=== PATIENT | female | born 1930 | race Caucasian/White ===

== ENCOUNTER 2017-07-31 08:30 | Day surgery (SDC) | payer OTHER ==
[2017-07-08 15:06] VITALS: BMI 21.7
--- NOTE | 2017-07-31 08:58 | HP ---
Satellite [facility] - Chief Complaint Chief Complaint: right hip pain - Past Medical History Allergies/Adverse Reactions: Allergies Allergy/AdvReac Type Severity Reaction Status Date / Time No Known Drug Allergies Allergy Verified 07/08/17 15:23 - Current Medications Current Medications: Home Medications Medication Instructions Recorded Acetaminophen [Extra Strength 500 mg PO TID 07/09/17 Non-Aspirin] Amlodipine Besylate [Norvasc -] 5 mg PO DAILY 07/09/17 Aspirin [ASA -] 81 mg PO DAILY 07/09/17 Atenolol [Tenormin] 100 mg PO DAILY 07/09/17 Digoxin [Lanoxin -] 0.125 mg PO DAILY 07/09/17 Esomeprazole Magnesium [Nexium 40 mg PO DAILY 07/09/17 24Hr] Ferrous Sulfate [Feosol] 650 mg PO DAILY 07/09/17 Furosemide 20 mg PO DAILY 07/09/17 Glyburide 2.5 mg PO DAILY 07/09/17 Isosorbide Mononitrate [Imdur] 60 mg PO DAILY 07/09/17 Pravastatin Sodium [Pravachol (Nf)] 40 mg PO DAILY 07/09/17 Prednisone 1.5 mg PO DAILY 07/09/17 Pregabalin [Lyrica] 75 mg PO DAILY 07/09/17 Satellite Physical Exam - Physical Examination General Appearance: Well Nourished, Well Developed, Alert & Oriented x3 ENT: Clear Lung: Normal air movement Heart: Regular rate & rhythm Extremities: Other (right hip- + ttp, decr rom, nvi xrays show hip djd) Neurological: Intact, Alert, Oriented Satellite Impression/Plan - Impression/Plan Impression: right hip djd Operative Procedure: right hip arthrogram with injection of cortisone Date to be Performed: 07/31/17
[2017-07-31 09:16] VITALS: TEMP 98.2
[2017-07-31] MEDS ORDERED: IOHEXOL 180 MG/1 ML ML IJ ONE (10:21)
[2017-07-31] MEDS ORDERED: LIDOCAINE HCL 1%, 10 MG/ML (20ML VIAL) NR ONE (10:21)
[2017-07-31] MEDS ORDERED: methylPREDNISolone ACET (DEPO) 80 MG/1 ML VIAL IM ONE (10:21)
--- NOTE | 2017-07-31 10:26 | OP ---
Operative Note - Note: Operative Date: 07/31/17 Pre-Operative Diagnosis: DJD RIGHT HIP Operation: ARTHROGRAM RIGHT HIP AND INJECTION OF CORTISONE Post-Operative Diagnosis: Same as Pre-op Anesthesia: General Operative Report Dictated: Yes
--- NOTE | 2017-07-31 11:30 | OP ---
DATE OF OPERATION: 07/31/2017 PREOPERATIVE DIAGNOSIS: Degenerative joint disease, right hip. POSTOPERATIVE DIAGNOSIS: Degenerative joint disease, right hip. PROCEDURES: Arthrogram and injection of cortisone, right hip. SURGICAL ATTENDING: Amari Pride MD ANESTHESIA: IV sedation. DESCRIPTION OF PROCEDURE: The patient was taken to the operating room on July 31, 2017. IV sedation was administered by the anesthesiologist. The hip area was identified using the fluoroscopy and a spinal needle was inserted on a 45-degree angle away from the artery directed to the hip joint. Confirmation that we were in the hip joint was confirmed by use of Hypaque dye. Once confirming inside the hip joint, the hip was injected with 80 mg of Depo-Medrol and 7-8 mL of 1% lidocaine. The needle was withdrawn. Pressure was applied and a Band-Aid applied. The patient was awakened from anesthesia and transferred to recovery room in stable condition. No complications. Estimated blood loss negligible. AMARI PRIDE M.D. [id number]
[2017-07-31 12:41] VITALS: BP 131/60; PULSE 70
== END 2017-07-31 12:00 | disposition home or self-care (01) ==
LOC: JASU-SURG 08:30
PROVIDERS: ATTEND Orthopaedic Surgery
PROC: BQ01YZZ Plain Radiography of Left Hip using Other Contrast (ICD-10-PCS; 2017-07-31)
PROC: BW1CYZZ Fluoroscopy of Lower Extremity using Other Contrast (ICD-10-PCS; principal; 2017-07-31 10:15)
DX: M16.11 Unilateral primary osteoarthritis, right hip (principal)
CPT/HCPCS: 73525; G0260; 76000-TC-FY; 82962

== ENCOUNTER 2017-12-21 16:14 | Inpatient (IN) | payer OTHER ==
--- NOTE | 2017-12-21 17:12 | PDOC ---
History of Present Illness - General Chief Complaint: Injury Stated Complaint: WEAKNESS Time Seen by Provider: 12/21/17 17:09 History Source: Patient, Care Provider (home health aide) Exam Limitations: No Limitations - History of Present Illness Initial Comments: Pt, with PMH of CHF, HTN, DM, DJJ right hip, colostomy, and Parkinson's Ds, presents to the ER with chronic R hip pain, and increased swelling in the legs and feet (R>L). The pt also admits to multiple falls within the past few months , due to weakness and "heaviness" in the R leg. She has had a constant dull pain in the R hip, which travels down to the R leg. The pt has a home health aide, who is only available 4-5 days of the week, and the pt daughter stays with her in the evening. She states during the last un-witnessed fall, she fell while transferring to her wheelchair, and fell onto her knees before she picked herself up. Her colostomy bag has been draining brown stool as normal, and she cleans and drains it on her own. She denies any precipitating factors to the fall. She has a PLANNING AND ANALYSIS MANAGER that comes to her house to manage her medications. They have increased her Lasix to 20 mg PO, with no relief of swelling. She denies fevers/ chills, headache, vision changes, chest pain, SOB, abdominal pain, nausea/ vomiting, diarrhea/constipation, loss of sensation in the extremities, or joint swelling. Dr Pride (orthopedics) conducted a R arthrogram for pain control in July 2017. Pt states Dr. Pride told her she needed a R hip and knee replacement. Her DM is controlled with glyburide (2.5 mg, no insulin use). 12/21/17 18:17 Past History - Travel Traveled outside of the country in the last 30 days: No Close contact w/someone who was outside of country & ill: No - Past Medical History Allergies/Adverse Reactions: Allergies Allergy/AdvReac Type Severity Reaction Status Date / Time No Known Drug Allergies Allergy Verified 07/08/17 15:23 Home Medications: Ambulatory Orders Amlodipine Besylate [Norvasc -] 5 mg PO DAILY 12/21/17 Ascorbic Acid [Vitamin C] 500 mg PO DAILY 12/21/17 Aspirin [ASA -] 81 mg PO DAILY 12/21/17 Atenolol [Tenormin -] 100 mg PO DAILY 12/21/17 Dexlansoprazole [Dexilant] 60 mg PO DAILY 12/21/17 Digoxin [Lanoxin -] 0.125 mg PO DAILY 12/21/17 Fenofibrate Nanocrystallized [Fenofibrate] 54 mg PO DAILY 12/21/17 Ferrous Sulfate 325 mg PO DAILY 12/21/17 Furosemide 20 mg PO DAILY 12/21/17 Glyburide 2.5 mg PO DAILY 12/21/17 Glyburide 2.5 mg PO DAILY 12/21/17 Isosorbide Mononitrate [Isosorbide Mononitrate ER] 60 mg PO DAILY 12/21/17 Prednisone 5 mg PO DAILY 12/21/17 Pregabalin [Lyrica -] 75 mg PO DAILY 12/21/17 Anemia: No Asthma: No Cancer: No Cardiac Disorders: Yes (CARDIAC STENT 2002) CVA: No COPD: No CHF: No Dementia: No Diabetes: No GI Disorders: No Disorders: No HTN: Yes Hypercholesterolemia: Yes Liver Disease: No Seizures: No Thyroid Disease: No - Surgical History Abdominal Surgery: Yes (COLON RESECTION AND COLOSTOMY) Appendectomy: No Cardiac Surgery: Yes (CARDIAC STENT) Cholecystectomy: Yes (AGE 59) Lung Surgery: No Neurologic Surgery: No Orthopedic Surgery: No - Suicide/Smoking/Psychosocial Hx Smoking History: Never smoked Have you smoked in the past 12 months: No Hx Alcohol Use: No Drug/Substance Use Hx: No Substance Use Type: None Hx Substance Use Treatment: No Review of Systems - Review of Systems Able to Perform ROS?: Yes Is the patient limited Malay proficient: No Constitutional: Yes: Weakness (weak in R leg, as "knees buckle"), Weight Stable. No: Chills, Diaphoresis, Fever, Loss of Appetite, Malaise HEENTM: No: Recent change in vision, Nose Congestion, Hearing Loss, Difficulty Swallowing Respiratory: No: Cough, Orthopnea, Shortness of Breath, Hemoptysis Cardiac (ROS): No: Chest Pain, Edema, Irregular Heart Rate, Lightheadedness, Palpitations, Syncope, Chest Tightness ABD/GI: No: Abdominal Distended, Constipated, Diarrhea, Nausea, Poor Appetite, Poor Fluid Intake, Vomiting : Yes: Incontinence (has had trouble getting to the bathroom for urination in time). No: Burning, Dysuria, Frequency, Hematuria, Pain, Urgency Musculoskeletal: Yes: Joint Pain (R hip pain), Joint Swelling (edema over feet and ankles, worse R>L). No: Back Pain Integumentary: Yes: Other (edema in legs and feet R>L. Not relieved with compression stockings.). No: Bruising, Erythema, Rash Neurological: Yes: Tremors (b/l resting tremor in hands (Parkinson's)). No: Headache, Numbness, Paresthesia, Seizure, Weakness, Unsteady Gait, Ataxia, Dizziness Psychiatric: No: Sleep Pattern Change, Change in Appetite Endocrine: No: Increased Urine, Change in Weight Hematologic/Lymphatic: No: Anemia, Blood Clots, Easy Bleeding All Other Systems: Reviewed and Negative *Physical Exam - Physical Exam General Appearance: Yes: Nourished, Appropriately Dressed. No: Apparent Distress HEENT: positive: EOMI, ANGEL, Normal ENT Inspection, Normal Voice, Symmetrical, Hearing Grossly Normal. negative: Pharynx Normal, Scleral Icterus (R), Scleral Icterus (L), Pharyngeal Erythema, Tonsillar Exudate, Tonsillar Erythema, Rhinorrhea Neck: positive: Trachea midline, Normal Thyroid, Supple. negative: Tender, Rigid, Decreased range of motion, Lymphadenopathy (R), Lymphadenopathy (L) Respiratory/Chest: positive: Lungs Clear, Normal Breath Sounds. negative: Chest Tender, Respiratory Distress, Accessory Muscle Use, Crackles, Wheezing Cardiovascular: positive: Regular Rate, S1, S2, Edema (b/l LE edema (R>L)). negative: Regular Rhythm (A-flutter), JVD, Murmur Vascular Pulses: Carotid (R): 3+, Carotid (L): 3+, Dorsalis-Pedis (R): 0 ( unable to obtain due to edema), Doralis-Pedis (L): 0 Gastrointestinal/Abdominal: positive: Normal Bowel Sounds, Flat, Soft, Other ( colostomy bag, empty). negative: Tender, Organomegaly, Pulsatile Mass, Guarding , Rebound Rectal Exam: positive: deferred, other (Stage 1-2 erythematous pressure ulcer near sacrum. No drainage. ) Lymphatic: negative: Adenopathy, Tenderness Musculoskeletal: positive: Normal Inspection. negative: CVA Tenderness Extremity: positive: Normal Capillary Refill, Tender, Pelvis Stable, Pedal Edema (Significant non-pitting, fluctuant edema over b/l LE (R>L). Pt unable to flex at R hip due to pain, decreased ROM at R ankle. Strength and ROM preserved on LLE.). negative: Normal Inspection, Normal Range of Motion, Cyanosis Integumentary: positive: Normal Color, Dry, Warm, Erythema (erythematous R foot , varicose veins b/l). negative: Jaundice, Mottled, Ecchymosis, Bruising Neurologic: positive: solar sales estimator II-XII NML intact, Fully Oriented, Alert, Normal Mood/ Affect, Normal Response, Motor Strength 5/5. negative: EOM Palsy, Facial Droop , Numbness, Sensory Deficit, Confused, Disoriented Heart Score/ECG Review - History History: Moderately suspicious (CHF, no chest pain complaints) - Age Age: >/= 65 - Risk Factors Risk Factors Heart Score: Yes Hx Hypertension, Yes Hx Diabetes Based on the list above the patient has:: 1-2 risk factors - Troponin Troponin: </= normal limit - ECG Impressions Normal ECG: No Non-specific ST Elevation: No Ischemic Changes: No Bradycardia: No Comment:: Atrial flutter (appears to be 4:1 block). Rate: 55 bpm 12/21/17 20:20 ED Treatment Course - LABORATORY CBC & Chemistry Diagram: 12/21/17 18:38 12/21/17 18:38 Medical Decision Making - Medical Decision Making Pt seen at bedside, also seen by Dr. Palumbo. Pt complaining of pain in R hip ( chronic) and worsening swelling in the b/l legs (R>L). She also states she has had multiple falls over the past few months, due to the "heaviness" and weakness in her R leg. Pt takes baby aspirin. Pt only has a care provider 4-5 days of the week and her daughter stays with her at night. Her PLANNING AND ANALYSIS MANAGER has increased her Lasix to decrease the swelling (now 20 mg) with no relief. Pt has significant swelling in the RLE>LLE, considering CHF exacerbation versus DVT, as well as social issues (limited care at home). Ordered basic labs, coags, troponin/ECG, UA/culture, doppler of RLE, non-contrast head CT, and x-rays of R hip and R knee. ECG showed A-flutter 12/21/17 19:09 Pt taken for US. 12/21/17 19:27 CBC and CMP generally WNL. Cr 1.1. BNP 1883. Troponin negative. US negative for DVT. Spoke to pt's daughters to gain more cardiac history. She has history of atrial fibrillation. Pt currently in CT and x-rays. Will check for results. 12/21/17 21:46 Pt returned from imaging. Awaiting images. Paged hospitalist for admission. 12/21/17 22:53 Signed out to hospitalist team and they are at bedside. Will be admitted for observation and likely social work consult. 12/21/17 23:36 *DC/Admit/Observation/Transfer Diagnosis at time of Disposition: Falls frequently, Atrial flutter by electrocardiogram - Discharge Dispostion Condition at time of disposition: Stable Decision to Admit order: Yes - Referrals Referrals: ON STAFF,NOT [Primary Care Provider] - - Patient Instructions - Post Discharge Activity
[2017-12-21] MEDS ORDERED: ACETAMINOPHEN 1000 MG/100 ML VIAL (NON FORMULARY) IVPB ONE (17:52)
[2017-12-21] MEDS ORDERED: ACETAMINOPHEN INJECTION 100 ML IVPB ONE (18:59)
--- NOTE | 2017-12-21 19:13 | PDOC ---
Attending Attestation - HPI HPI: 12/21/17 19:23 The patient is a 87 year old female, with a significant past medical history of CHF, DM, HTN, and Parkinsons, who presents to the emergency department with, 1 week of worsening bilateral lower extremity swelling worse in the right. As per patient, in July she had an arthrogram of her right hip in July by Dr. Pride to whom informed her that the next step would have to be a right hip replacement. She reports using compression stockings, with minimal relief. She reports 3 days ago she fell to her knees after her right foot buckling when moving from her bed to her wheelchair. As per patient, shes had multiple falls lately. She has an at supervisor home economics 6 days a week for 11 hours and her daughter stays with her at night. During the morning she is left alone between the hours her daughter goes to work and her aid comes in. She denies any recent LOC or hitting her head. She denies recent fevers, chills , headache or dizziness. She denies recent nausea, vomit, diarrhea or constipation. She denies recent dysuria, frequency, urgency or hematuria. She denies recent chest pain or shortness of breath. Allergies: NKA Past surgical history: s/p cardiac stent, s/p colostomy and colon resection, and cholecystectomy. - Physicial Exam PE: 12/21/17 19:23 GENERAL: Awake, alert, and fully oriented, in no acute distress HEAD: No signs of trauma +ENT: Hearing grossly normal. Dry mucosa NECK: Normal ROM, supple, no lymphadenopathy, JVD, or masses No c-spine tenderness. LUNGS: Breath sounds equal, clear to auscultation bilaterally. No wheezes, and no crackles +HEART: Systolic murmur. Regular rate, normal S1 and S2, rubs or gallops +ABDOMEN: Colostomy bag in place. Soft, nontender, normoactive bowel sounds. No guarding, no rebound. No masses +EXTREMITIES: Bilateral pitting edema right greater than left. Right hip and groin tenderness. Decreased ROM on the right due to pain No erythema or tenderness. Warm and well perfused. +NEUROLOGICAL: Strength 5/5. Speech slow but, clear. ANO x3. Moves all extremities. SKIN: Warm, Dry, normal turgor, no rashes or lesions noted. <Goberdan,Kirstene - Last Filed: 12/21/17 19:53> - Resident Resident Name: Zita Mitchellana - ED Attending Attestation I have performed the following: I have examined & evaluated the patient, The case was reviewed & discussed with the resident, I agree w/resident's findings & plan, Exceptions are as noted - Medical Decision Making 12/21/17 19:11 87-year-old female history of Parkinson's, hypertension, diabetes currently on baby aspirin here today complaining of a fall a few days prior with persistent hip and knee pain worse on the right. Patient states that she has had several falls over the last few weeks that she did not tell anybody about she lives alone has home health aide approximately 11 hours 6 days a week only states that most recently she fell to her knees were unable to get up her neighbor happened to come over and help her into her chair when the aide arrived the patient was still in the chair has been unable to walk she has had decreased by mouth intake due to concerns for her colostomy with high output. No fever no chills states that overall she has very poor balance no urinary complaints or nausea no vomiting states she was on the floor for 20 minutes X Differential diagnosis includes rhabdomyolysis traumatic fracture of the right hip stroke or intracranial bleed infection such as UTI or pneumonia precipitating falls plan: CT head chest x-ray x-ray of the right hip and knee UA patient will likely require admission for home safety eval PT she is not currently in a safe situation for fall risk <Britany Palumbo - Last Filed: 12/21/17 21:31> Heart Score/ECG Review #1 General ECG Interpretation: Normal Intervals, No acute ischemic changes Compared to previous ECG there are: Other (atrial flutter 55 bpm) <Britany Palumbo - Last Filed: 12/21/17 21:31> Attestations - Attestations 12/21/17 19:24 Documentation prepared by Dirk Schumacher, acting as medical technician assistant for Britany Palumbo MD. <Dirk Schumacher - Last Filed: 12/21/17 19:53>
[2017-12-21 19:15] LABS: BASO % 0.6 % (0-2.0); EOS % 0.3 % (0-4.5); HEMOGLOBIN 12.2 GM/dL (10.7-15.3); LYMPH % 15.5 % (8-40); MCH 25.6 pg (25.7-33.7); MEAN CELL VOLUME 77.5 fl (80-96); MEAN PLT VOLUME 9.8 fl (7.5-11.1); MONO % 5.1 % (3.8-10.2); NEUT % 78.5 % (42.8-82.8); PLATELET COUNT 145 K/MM3 (134-434); RBC 4.78 M/mm3 (3.60-5.2); RDW 16.8 % (11.6-15.6); WHITE BLOOD COUNT 8.5 K/mm3 (4.0-10.0)
[2017-12-21 19:40] LABS: INR 1.2 (0.83-1.09); PROTHROMBIN TIME (PATIENT) 13.6 SEC (9.7-13.0)
[2017-12-21 19:42] LABS: ACTIVATED PTT 28.4 SECONDS (25.2-36.5)
[2017-12-21 19:50] LABS: ANION GAP 10 (8-16); BILIRUBIN,TOTAL 0.5 mg/dL (0.2-1.0); BLOOD UREA NITROGEN 18 mg/dL (7-18); CALCIUM 9.3 mg/dL (8.5-10.1); CHLORIDE 109 mmol/L (98-107); CO2 26 mmol/L (21-32); CREATININE 1.1 mg/dL (0.55-1.02); GLUCOSE,RANDOM 85 mg/dL (74-106); POTASSIUM 4.3 mmol/L (3.5-5.1); SGOT/AST 16 U/L (15-37); SGPT/ALT 21 U/L (12-78); SODIUM 145 mmol/L (136-145); TOT PROT 7.9 g/dl (6.4-8.2)
[2017-12-21 19:53] LABS: ALK PHOS 48 U/L (45-117); N-TERMINAL BNP 1883.74 pg/ml (5-450)
[2017-12-21 20:48] LABS: URINE APPEARANCE CLEAR; URINE BILIRUBIN NEGATIVE (<2.0 mg/dL); URINE COLOR YELLOW; URINE GLUCOSE (UA) NEGATIVE (NEGATIVE); URINE KETONE NEGATIVE (NEGATIVE); URINE LEUK ESTERASE NEGATIVE (NEGATIVE); URINE NITRITE NEGATIVE (NEGATIVE); URINE UROBILINOGEN NEGATIVE mg/dL (0.2-1.0)
[2017-12-21 20:52] LABS: URINE PROTEIN 2+ (NEGATIVE)
--- NOTE | 2017-12-21 23:17 | PN ---
Teaching Attending Note Name of Resident: Lesli Bolton ATTENDING PHYSICIAN STATEMENT I saw and evaluated the patient. I reviewed the resident's note and discussed the case with the resident. I agree with the resident's findings and plan as documented. SUBJECTIVE: Patient is an 87 year old woman with PMH of CHF, HTN, DM, DJJ right hip, colostomy, and Parkinson's who presents to the ER with chronic R hip pain, and increased swelling in the legs and feet (R>L). She also admits to multiple falls within the past few months, due to weakness and "heaviness" in the R leg. She has had a constant dull pain in the R hip, which travels down to the R leg. Patient has a home health aide, who is only available 4-5 days of the week, and her daughter stays with her in the evening. She states during the last un- witnessed fall, she fell while transferring to her wheelchair, and fell onto her knees before she picked herself up. Her colostomy bag has been draining brown stool as normal, and she cleans and drains it on her own. She has a BUFFER INFLATED PAD that comes to her house to manage her medications. They have increased her Lasix to 20 mg PO, with no relief of swelling. She denies fevers/chills, headache, vision changes, chest pain, SOB, abdominal pain, nausea/vomiting, diarrhea/constipation, loss of sensation in the extremities, or joint swelling. OBJECTIVE: Alert Vital Signs Period Temp Pulse Resp BP Sys/Rodriguez Pulse Ox Last 24 Hr 97.9 F-98.2 F 59-70 16-18 151-185/67-78 99-100 HEENT: No Jaundice, eye redness or discharge, PERRLA, EOMI. Normocephalic, atraumatic. External ears are normal and hearing is grossly intact. No nasal discharge. Neck: Supple, nontender. No palpable adenopathy or thyromegaly. No JVD Chest: Good effort. Clear to auscultation and percussion. Heart: Irregular. No S3, rub or murmur Abdomen: Not distended, soft, nontender and no HSM. Colostomy intact; No rebound or guarding. Normoactive bowel sounds. Ext: Peripheral pulses intact. No leg edema. Skin: Warm and dry. No petechiae, rash or ecchymosis. Neuro: Alert. Oriented x3. CN 2-12 grossly intact. Sensation grossly intact in all four extremities and DTR are symmetric. Home Medications Medication Instructions Recorded Amlodipine Besylate [Norvasc -] 5 mg PO DAILY 12/21/17 Ascorbic Acid [Vitamin C] 500 mg PO DAILY 12/21/17 Aspirin [ASA -] 81 mg PO DAILY 12/21/17 Atenolol [Tenormin -] 100 mg PO DAILY 12/21/17 Dexlansoprazole [Dexilant] 60 mg PO DAILY 12/21/17 Digoxin [Lanoxin -] 0.125 mg PO DAILY 12/21/17 Fenofibrate Nanocrystallized 54 mg PO DAILY 12/21/17 [Fenofibrate] Ferrous Sulfate 325 mg PO DAILY 12/21/17 Furosemide 20 mg PO DAILY 12/21/17 Glyburide 2.5 mg PO DAILY 12/21/17 Glyburide 2.5 mg PO DAILY 12/21/17 Isosorbide Mononitrate [Isosorbide 60 mg PO DAILY 12/21/17 Mononitrate ER] Prednisone 5 mg PO DAILY 12/21/17 Pregabalin [Lyrica -] 75 mg PO DAILY 12/21/17 Abnormal Lab Results 12/21/17 12/21/17 12/21/17 18:38 18:38 18:38 MCV 77.5 L MCH 25.6 L RDW 16.8 H PT with INR 13.60 H INR 1.20 H Chloride 109 H Creatinine 1.1 H B-Natriuretic Peptide 1883.74 H Urine Protein 12/21/17 20:21 MCV MCH RDW PT with INR INR Chloride Creatinine B-Natriuretic Peptide Urine Protein 2+ H ASSESSMENT AND PLAN: 1. Frequent fall/?CHF - Cause of frequent falls unclear. May be related to multijoint problems and DJD of hips. Patient uses wheelchair. Will consult PT and neurology. Cause of leg edema unclear - will get ECHO, DC amlodipine, consult cardiology for A flutter. Will then use appropriate dose of diuretics after ECHO findings. 2. DM - For now, we will hold the home diabetes drugs and implement sliding scale insulin regimen. Provide comprehensive diabetes care with patient teaching and counseling about the importance of euglycemia, eye care and foot care. 3. ZEKE? - Has proteinuria and leg edema. Check protein/creatinine ratio, kidney sonogram and fasting lipid profile. Consult nephrology and avoid nephrotoxic agents such as NSAIDS, aminoglycosides, contrast dyes and certain Alternative medicine products. 4. DVT prophylaxis - Heparin 5000u sq tid. 5. Advance directives - Full code
--- NOTE | 2017-12-22 01:41 | HP ---
CHIEF COMPLAINT: Increased Lower Extremity Swelling PCP: Alonzo (CHILD CARE CENTER ASSISTANT DIRECTOR) Field Mechanic/Site Lead: Chapo HISTORY OF PRESENT ILLNESS: 87 y/o Female presents with PMHx of CHF, Atrial Flutter, Cardiac Stent (2002), HTN, DM, DJD R Hip, Parkinsons disease, Hx of Multiple Falls, Chronic R Hip pain presents with an increase in lower extremity swelling over the past few months. 9 months ago, she started to feel off balance accompanied with R leg pain, weakness and b/l Lower extremity swelling (R>L). 5 months ago, patient had a R Hip Arthrogram and cortisone injection that did not relieve the pain. For the past few weeks, She has been experiencing blurry vision in her left eye. Patient recently fell and landed on her knees a few days ago. She has described the hip pain as constant, Dull, heaviness, 9/10 that is worse in the evenings and travels down her leg and occasionally feels like numbness/ tingling. She has tried compression stockings with minimal relief. Patient currently lives at home and has visiting nurses during the day for 4-5 days a week, and her daughter stays with her overnight. She currently is wheel chair bound. Denies fevers, chills, chest pain, SOB, dysuria. ER course was notable for: (1) EKG: A Flutter, Trops < 0.02 X1, BNP 1883 (2) Imaging pending official read (RLE Duplex, RLE Xray, Head CT, CXR) (3) Recent Travel: Denies PAST MEDICAL HISTORY: CHF Atrial Flutter Cardiac Stent (2002) HTN DM DJD R Hip Parkinsons disease Hx of Multiple Falls PAST SURGICAL HISTORY: Colostomy s/p Colon resection Cholecystectomy (Age 59) Cardiac stent Social History: Smoking: Denies Alcohol: Denies Drugs: Denies Family History: Allergies No Known Drug Allergies Allergy (Verified 07/08/17 15:23) HOME MEDICATIONS: Home Medications Medication Instructions Recorded Amlodipine Besylate [Norvasc -] 5 mg PO DAILY 12/21/17 Ascorbic Acid [Vitamin C] 500 mg PO DAILY 12/21/17 Aspirin [ASA -] 81 mg PO DAILY 12/21/17 Atenolol [Tenormin -] 100 mg PO DAILY 12/21/17 Dexlansoprazole [Dexilant] 60 mg PO DAILY 12/21/17 Digoxin [Lanoxin -] 0.125 mg PO DAILY 12/21/17 Fenofibrate Nanocrystallized 54 mg PO DAILY 12/21/17 [Fenofibrate] Ferrous Sulfate 325 mg PO DAILY 12/21/17 Furosemide 20 mg PO DAILY 12/21/17 Glyburide 2.5 mg PO DAILY 12/21/17 Glyburide 2.5 mg PO DAILY 12/21/17 Isosorbide Mononitrate [Isosorbide 60 mg PO DAILY 12/21/17 Mononitrate ER] Prednisone 5 mg PO DAILY 12/21/17 Pregabalin [Lyrica -] 75 mg PO DAILY 12/21/17 REVIEW OF SYSTEMS CONSTITUTIONAL: Absent: fever, chills, diaphoresis, generalized weakness, malaise, loss of appetite, weight change HEENT: Present: Blurry Vision Absent: rhinorrhea, nasal congestion, throat pain, throat swelling, difficulty swallowing, mouth swelling, ear pain, eye pain, visual changes CARDIOVASCULAR: Present: peripheral edema Absent: chest pain, syncope, palpitations, irregular heart rate, lightheadedness RESPIRATORY: Absent: cough, shortness of breath, dyspnea with exertion, orthopnea, wheezing, stridor, hemoptysis GASTROINTESTINAL: Absent: abdominal pain, abdominal distension, nausea, vomiting, diarrhea, constipation, melena, hematochezia GENITOURINARY: Absent: dysuria, frequency, urgency, hesitancy, hematuria, flank pain, genital pain MUSCULOSKELETAL: Present: RLE Weakness, Joint Pain Absent: myalgia, arthralgia, joint swelling, back pain, neck pain SKIN: Absent: rash, itching, pallor HEMATOLOGIC/IMMUNOLOGIC: Absent: easy bleeding, easy bruising, lymphadenopathy, frequent infections ENDOCRINE: Absent: unexplained weight gain, unexplained weight loss, heat intolerance, cold intolerance NEUROLOGIC: Absent: headache, focal weakness or paresthesias, dizziness, unsteady gait, seizure, mental status changes, bladder or bowel incontinence PSYCHIATRIC: Absent: anxiety, depression, suicidal or homicidal ideation, hallucinations. PHYSICAL EXAMINATION Vital Signs - 24 hr 12/21/17 12/21/17 17:00 20:10 Temperature 98.2 F 97.9 F Pulse Rate 70 Pulse Rate [ 59 L Apical] Respiratory 16 18 Rate Blood Pressure 151/67 Blood Pressure 185/78 [Left Arm] O2 Sat by Pulse 99 100 Oximetry (%) GENERAL: Awake, alert, and fully oriented, in no acute distress. EYES: PERRL, EOMI, sclera anicteric THROAT: oropharynx clear without exudates. Moist mucous membranes. NECK: No JVD, No carotid bruits appreciated LUNGS: Breath sounds equal, clear to auscultation bilaterally. No wheezes. HEART: Regular rate and rhythm, normal S1 and S2 without murmur. ABDOMEN: Soft, nontender, not distended, normoactive bowel sounds, no guarding, Colostomy bag present without any surrounding drainage or erythema. UPPER EXTREMITIES: 2+ pulses, Right hand finger nail discoloration. LOWER EXTREMITIES: 2+ pulses, Lower extremity edema present at base line that has increased as per patient. PSYCHIATRIC: Cooperative. Good eye contact. Appropriate mood and affect. SKIN: Warm, dry, no rashes or lesions noted Laboratory Results - last 24 hr 12/21/17 12/21/17 12/21/17 18:38 18:38 18:38 WBC 8.5 RBC 4.78 Hgb 12.2 Hct 37.0 MCV 77.5 L MCH 25.6 L MCHC 33.0 RDW 16.8 H Plt Count 145 MPV 9.8 Absolute Neuts (auto) 6.7 Neutrophils % 78.5 Lymphocytes % 15.5 D Monocytes % 5.1 Eosinophils % 0.3 Basophils % 0.6 Nucleated RBC % 0 PT with INR 13.60 H INR 1.20 H PTT (Actin FS) 28.4 Sodium Potassium Chloride Carbon Dioxide Anion Gap BUN Creatinine Creat Clearance w eGFR Random Glucose Calcium Total Bilirubin AST ALT Alkaline Phosphatase Troponin I B-Natriuretic Peptide Total Protein Albumin Urine Color Urine Appearance Urine pH Ur Specific [place] Urine Protein Urine Glucose (UA) Urine Ketones Urine Blood Urine Nitrite Urine Bilirubin Urine Urobilinogen Ur Leukocyte Esterase Urine WBC (Auto) Urine RBC (Auto) Blood Type A POSITIVE Antibody Screen Negative 12/21/17 12/21/17 18:38 20:21 WBC RBC Hgb Hct MCV MCH MCHC RDW Plt Count MPV Absolute Neuts (auto) Neutrophils % Lymphocytes % Monocytes % Eosinophils % Basophils % Nucleated RBC % PT with INR INR PTT (Actin FS) Sodium 145 Potassium 4.3 Chloride 109 H Carbon Dioxide 26 Anion Gap 10 BUN 18 Creatinine 1.1 H Creat Clearance w eGFR 46.88 Random Glucose 85 Calcium 9.3 Total Bilirubin 0.5 AST 16 ALT 21 Alkaline Phosphatase 48 Troponin I < 0.02 B-Natriuretic Peptide 1883.74 H Total Protein 7.9 Albumin 4.0 Urine Color Yellow Urine Appearance Clear Urine pH 5.0 Ur Specific [place] 1.017 Urine Protein 2+ H Urine Glucose (UA) Negative Urine Ketones Negative Urine Blood Negative Urine Nitrite Negative Urine Bilirubin Negative Urine Urobilinogen Negative Ur Leukocyte Esterase Negative Urine WBC (Auto) <1 Urine RBC (Auto) <1 Blood Type Antibody Screen Active Medications Heparin Sodium (Porcine) (Heparin -) 5,000 unit SQ TID [facility] Last Admin: 12/22/17 06:08 Dose: 5,000 unit Insulin Aspart (Novolog Vial Sliding Scale -) 1 vial SQ ACHS [facility]; Protocol Last Admin: 12/22/17 06:12 Dose: Not Given ASSESSMENT/PLAN: 87 y/o Female presents with PMHx of CHF, Atrial Flutter, Cardiac Stent (2002), HTN, DM, DJD R Hip, Parkinsons disease, Hx of Multiple Falls, Chronic R Hip pain presents with an increase in lower extremity swelling. 1. Lower Extremity swelling (R>L) - Chronic swelling at baseline that has increased over the past few months in the setting of multiple recent falls and being wheel chair bound - Has tried increasing home dose Lasix to 20mg and using compression stalking without relief - Consider this is sequlae of Norvasc use, will stop Norvasc for now - Hx of CHF, Parkinsons disease, Multiuple falls - Physical Therapy request - Neurology (Dr. Padilla) Consulted - Cardiology (Dr. Cowan) consulted - RLE Duplex, Knee and Hip XRay, Head CT, CXR pending official read - ECHO ordered for this morning - Lipid panel pending 2. ZEKE - Elevated Cr, UA: 2+ Protien - Ordered Urine Protein:Cr Ratio - Renal Ultrasound pending - Nephrology (Dr. Thorpe) consulted 3. DM - Hold home medications - BGM, ISS ACHS 4. Parkinsons disease - Also has a Hx of Multiple Falls - Neurology (Dr. Padilla) Consulted 5. Atrial Flutter - Cardiology (Dr. Cowan) consulted - Will continue home meds pending Echo and Cardiology recomendations 6. HTN - Will Continue home meds pending med rec 7. PPx - DVT: Heparin 5000unit SQ TID Visit type - Emergency Visit Emergency Visit: Yes ED Registration Date: 12/22/17 Care time: The patient presented to the Emergency Department on the above date and was hospitalized for further evaluation of their emergent condition. - New Patient This patient is new to me today: Yes Date on this admission: 12/22/17 - Critical Care Critical Care patient: No Hospitalist Screening - Colonoscopy Questionnaire Colonoscopy Questionnaire: Colonoscopy Questionnaire - Patient: 50 - 75 years old and never had a screening colonoscopy: Unknown History of colon or rectal polyps, or CA: Unknown History of IBD, Crohn's disease or UC: Unknown History of abdominal radiation therapy as a child: Unknown - Relative: 1 with colon or rectal CA, or polyps at age 60 or younger: Unknown Colon or rectal CA diagnosed at age 45 or younger: Unknown Multiple relatives with colon or rectal CA: Unknown - Outcome: Screening Result: Negative Screen
[2017-12-22] MEDS: HEPARIN NA (PORCINE) 5,000 UNITS/ML 1ML VIAL SQ SCH ×3 (06:08→21:40)
[2017-12-22] MEDS: INSULIN SLIDING SCALE (NOVOLOG) 1 VIAL SQ SCH ×4 (06:12→21:40)
[2017-12-22] MEDS ORDERED: FUROSEMIDE 40 MG/4 ML INJECTABLE VIAL IVPUSH ONE (08:57)
[2017-12-22 09:04] LABS: BASO % 1.1 % (0-2.0); HEMATOCRIT 39.5 % (32.4-45.2); HEMOGLOBIN 13.1 GM/dL (10.7-15.3); LYMPH % 20.1 % (8-40); MCH 25.6 pg (25.7-33.7); MCHC 33.2 g/dl (32.0-36.0); MEAN CELL VOLUME 77.2 fl (80-96); MEAN PLT VOLUME 9.7 fl (7.5-11.1); MONO % 8.4 % (3.8-10.2); NEUT % 69.4 % (42.8-82.8); PLATELET COUNT 143 K/MM3 (134-434); RBC 5.11 M/mm3 (3.60-5.2); RDW 16.5 % (11.6-15.6); WHITE BLOOD COUNT 9.5 K/mm3 (4.0-10.0)
--- NOTE | 2017-12-22 09:04 | PN ---
Physical Exam: SUBJECTIVE: Patient seen and examined.Right hip pain ongoing for a year with gradual worsening. Also reports worsening leg edema, unable to lie flat in bed at baseline. reports some worsening of her RLE symptoms since fall, but confirms an overall gradual decline. OBJECTIVE: Vital Signs Period Temp Pulse Resp BP Sys/Rodriguez Pulse Ox Last 24 Hr 97.9 F-98.2 F 59-72 16-18 148-185/67-78 97-100 GENERAL: sitting in bed in no acute distress Neck: mild neck vein distension Chest: few basilar rales, positive air entry bilaterally Abdomen:soft, NT throughout, ND, positive bowel sounds Extremities: no point tenderness over right hip/groin region, SLR upto 20 degrees RLE, limited by pain, LLE upto 40 degrees, no point spinal tenderness, bilateral knee swelling, R>L, chronic per patient Laboratory Results - last 24 hr 12/21/17 12/21/17 12/21/17 18:38 18:38 18:38 WBC 8.5 RBC 4.78 Hgb 12.2 Hct 37.0 MCV 77.5 L MCH 25.6 L MCHC 33.0 RDW 16.8 H Plt Count 145 MPV 9.8 Absolute Neuts (auto) 6.7 Neutrophils % 78.5 Lymphocytes % 15.5 D Monocytes % 5.1 Eosinophils % 0.3 Basophils % 0.6 Nucleated RBC % 0 PT with INR 13.60 H INR 1.20 H PTT (Actin FS) 28.4 Sodium Potassium Chloride Carbon Dioxide Anion Gap BUN Creatinine Creat Clearance w eGFR POC Glucometer Random Glucose Calcium Total Bilirubin AST ALT Alkaline Phosphatase Troponin I B-Natriuretic Peptide Total Protein Albumin Urine Color Urine Appearance Urine pH Ur Specific [place] Urine Protein Urine Glucose (UA) Urine Ketones Urine Blood Urine Nitrite Urine Bilirubin Urine Urobilinogen Ur Leukocyte Esterase Urine WBC (Auto) Urine RBC (Auto) Blood Type A POSITIVE Antibody Screen Negative 12/21/17 12/21/17 12/22/17 18:38 20:21 06:10 WBC RBC Hgb Hct MCV MCH MCHC RDW Plt Count MPV Absolute Neuts (auto) Neutrophils % Lymphocytes % Monocytes % Eosinophils % Basophils % Nucleated RBC % PT with INR INR PTT (Actin FS) Sodium 145 Potassium 4.3 Chloride 109 H Carbon Dioxide 26 Anion Gap 10 BUN 18 Creatinine 1.1 H Creat Clearance w eGFR 46.88 POC Glucometer 87 Random Glucose 85 Calcium 9.3 Total Bilirubin 0.5 AST 16 ALT 21 Alkaline Phosphatase 48 Troponin I < 0.02 B-Natriuretic Peptide 1883.74 H Total Protein 7.9 Albumin 4.0 Urine Color Yellow Urine Appearance Clear Urine pH 5.0 Ur Specific [place] 1.017 Urine Protein 2+ H Urine Glucose (UA) Negative Urine Ketones Negative Urine Blood Negative Urine Nitrite Negative Urine Bilirubin Negative Urine Urobilinogen Negative Ur Leukocyte Esterase Negative Urine WBC (Auto) <1 Urine RBC (Auto) <1 Blood Type Antibody Screen Active Medications Generic Name Dose Route Start Last Admin Trade Name Freq PRN Reason Stop Dose Admin Atenolol 100 mg 12/22/17 10:00 Tenormin - PO DAILY [facility] Digoxin 0.125 mg 12/22/17 10:00 Lanoxin - PO DAILY [facility] Furosemide 20 mg 12/22/17 08:57 Lasix Injection - IVPUSH 12/22/17 08:58 ONCE ONE Heparin Sodium (Porcine) 5,000 unit 12/22/17 06:00 12/22/17 06:08 Heparin - SQ 5,000 unit TID [facility] Administration Insulin Aspart 1 vial 12/22/17 07:00 12/22/17 06:12 Novolog Vial Sliding Scale - SQ Not Given ACHS [facility] Protocol Isosorbide Mononitrate 60 mg 12/22/17 10:00 Imdur - PO DAILY [facility] ASSESSMENT/PLAN: 87 yof with PMhx of CHF, Atrial Flutter, Cardiac Stent (2002), HTN, DM, DJD R Hip, Parkinsons disease, Hx of Multiple Falls, Chronic R Hip pain, right hip arthrogram/Cortisone injection in 07/2017, comes with multiple unwitnessed falls and right hip pain radiating down leg and bilateral lower extremity edema. -Multi[le falls -Acute on chronic right hip pain -LE edema, suspect acute CHF (systolic vs diastolic) +/- amlodipine -Atrial flutter -Mild ZEKE with proteinuria -CAD s/p PCI -HTN -?Parkinson's disease -Osteoarthritis Plan: Lasix 20 mg IV x 1. Check 2D echo. Cardiology input. Daily weights, strict I/Os. Further diuresis based on clinical course. Resume Imdur/Digoxin. Hold amlodipine. Cr normalized. Renal input for proteinuria, likely DM related. Follow up renal US. Outpatient followup. Orthopedic input, PT eval, fall precautions. CT brain prelim neg for acute process. Hip/knee/pelvis xrays neg for acute concerns. Follow up LE duplex. ?parkinson's disease. No home meds for the same. Confirmed with pharmacy. Neurology input appreciated. Discuss with PCP tomorrow. Patient reports being on steroids prednisone 5 mg daily for polymyalgia, per Pharmacy, not filled since 07/2017, confirm with PCP in AM. Hold oral DM agents, ISS, diabetic diet. DVTPPx with heparin Hold ASA pending orthopedic input. Dispo ?SNF, will follow up PT eval and CM input. Plan discussed with patient and RN in detail, all questions answered. Visit type - Emergency Visit Emergency Visit: Yes ED Registration Date: 12/22/17 Care time: The patient presented to the Emergency Department on the above date and was hospitalized for further evaluation of their emergent condition. - New Patient This patient is new to me today: Yes Date on this admission: 12/22/17 - Critical Care Critical Care patient: No - Discharge Referral Referred to [facility] Med P.C.: No
[2017-12-22 09:27] LABS: ANION GAP 8 (8-16); BLOOD UREA NITROGEN 14 mg/dL (7-18); CHLORIDE 107 mmol/L (98-107); CO2 27 mmol/L (21-32); CREATININE 0.9 mg/dL (0.55-1.02); GLUCOSE,RANDOM 94 mg/dL (74-106); MAGNESIUM 2.2 mg/dL (1.8-2.4); PHOSPHOROUS 2.5 mg/dL (2.5-4.9); POTASSIUM 3.6 mmol/L (3.5-5.1); SGOT/AST 18 U/L (15-37); SGPT/ALT 20 U/L (12-78); SODIUM 142 mmol/L (136-145)
[2017-12-22 09:28] LABS: ALK PHOS 52 U/L (45-117); BILIRUBIN,TOTAL 0.6 mg/dL (0.2-1.0); TOT PROT 7.9 g/dl (6.4-8.2)
[2017-12-22 11:17] LABS: CHOLESTEROL 146 mg/dL (50-200); HDL CHOLESTEROL 34 mg/dL (40-60); TRIGLYCERIDES 158 mg/dL (35-160)
[2017-12-22] MEDS: DIGOXIN 0.125 MG TABLET (FP) PO SCH (11:19)
[2017-12-22] MEDS: ISOSORBIDE MONONITRATE 60 MG TAB.SR.24H (FP) PO SCH (11:19)
[2017-12-22] MEDS: ATENOLOL 50 MG TABLET (FP) PO SCH (11:20)
[2017-12-22] MEDS ORDERED: predniSONE 5 MG TABLET (UD) PO SCH (11:30)
--- NOTE | 2017-12-22 12:50 | CONSULT ---
Consult - text type - Consultation Consultation Note: Neurology CHIEF COMPLAINT: Increased Lower Extremity Swelling HISTORY OF PRESENT ILLNESS: 87 y/o Female presents with PMHx of CHF, Atrial Flutter, Cardiac Stent (2002), HTN, DM, DJD R Hip, ? Parkinsons disease, Hx of Multiple Falls, Chronic R Hip pain presents with an increase in lower extremity swelling over the past few months. 9 months ago, she started to feel off balance accompanied with R leg pain, weakness and b/l Lower extremity swelling (R>L). 5 months ago, reportedly had a R Hip Arthrogram and cortisone injection that did not relieve the pain. For the past few weeks, She has been experiencing blurry vision in her left eye. Patient recently fell and landed on her knees a few days ago. She has described the hip pain as constant, Dull, heaviness, 9/10 that is worse in the evenings and travels down her leg and occasionally feels like numbness/ tingling. She has tried compression stockings with minimal relief. Patient currently lives at home and has visiting nurses during the day for 4-5 days a week, and her daughter stays with her overnight. She currently is wheel chair bound. Denies fevers, chills, chest pain, SOB, dysuria. CT head completed, awaiting official read. Spoke with primary and getting medical optimization, physical therapy. May benefit from short term rehab if amenable and qualifies. Recent Travel: Denies PAST MEDICAL HISTORY: CHF Atrial Flutter Cardiac Stent (2002) HTN DM DJD R Hip Parkinsons disease Hx of Multiple Falls PAST SURGICAL HISTORY: Colostomy s/p Colon resection Cholecystectomy (Age 59) Cardiac stent Social History: Smoking: Denies Alcohol: Denies Drugs: Denies Family History: Allergies No Known Drug Allergies Allergy (Verified 07/08/17 15:23) HOME MEDICATIONS: Home Medications Medication Instructions Recorded Amlodipine Besylate [Norvasc -] 5 mg PO DAILY 12/21/17 Ascorbic Acid [Vitamin C] 500 mg PO DAILY 12/21/17 Aspirin [ASA -] 81 mg PO DAILY 12/21/17 Atenolol [Tenormin -] 100 mg PO DAILY 12/21/17 Dexlansoprazole [Dexilant] 60 mg PO DAILY 12/21/17 Digoxin [Lanoxin -] 0.125 mg PO DAILY 12/21/17 Fenofibrate Nanocrystallized 54 mg PO DAILY 12/21/17 [Fenofibrate] Ferrous Sulfate 325 mg PO DAILY 12/21/17 Furosemide 20 mg PO DAILY 12/21/17 Glyburide 2.5 mg PO DAILY 12/21/17 Glyburide 2.5 mg PO DAILY 12/21/17 Isosorbide Mononitrate [Isosorbide 60 mg PO DAILY 12/21/17 Mononitrate ER] Prednisone 5 mg PO DAILY 12/21/17 Pregabalin [Lyrica -] 75 mg PO DAILY 12/21/17 REVIEW OF SYSTEMS CONSTITUTIONAL: Absent: fever, chills, diaphoresis, generalized weakness, malaise, loss of appetite, weight change HEENT: Present: Blurry Vision Absent: rhinorrhea, nasal congestion, throat pain, throat swelling, difficulty swallowing, mouth swelling, ear pain, eye pain, visual changes CARDIOVASCULAR: Present: peripheral edema Absent: chest pain, syncope, palpitations, irregular heart rate, lightheadedness RESPIRATORY: Absent: cough, shortness of breath, dyspnea with exertion, orthopnea, wheezing, stridor, hemoptysis GASTROINTESTINAL: Absent: abdominal pain, abdominal distension, nausea, vomiting, diarrhea, constipation, melena, hematochezia GENITOURINARY: Absent: dysuria, frequency, urgency, hesitancy, hematuria, flank pain, genital pain MUSCULOSKELETAL: Present: RLE Weakness, Joint Pain Absent: myalgia, arthralgia, joint swelling, back pain, neck pain SKIN: Absent: rash, itching, pallor HEMATOLOGIC/IMMUNOLOGIC: Absent: easy bleeding, easy bruising, lymphadenopathy, frequent infections ENDOCRINE: Absent: unexplained weight gain, unexplained weight loss, heat intolerance, cold intolerance NEUROLOGIC: Absent: headache, focal weakness or paresthesias, dizziness, unsteady gait, seizure, mental status changes, bladder or bowel incontinence PSYCHIATRIC: Absent: anxiety, depression, suicidal or homicidal ideation, hallucinations. PHYSICAL EXAMINATION Vital Signs Period Temp Pulse Resp BP Sys/Rodriguez Pulse Ox Last 24 Hr 97.9 F-98.2 F 59-80 16-18 148-185/67-78 97-100 GENERAL: Awake, alert, and fully oriented, in no acute distress. EYES: PERRL, EOMI, sclera anicteric THROAT: oropharynx clear without exudates. Moist mucous membranes. NECK: No JVD, No carotid bruits appreciated LUNGS: Breath sounds equal, clear to auscultation bilaterally. No wheezes. HEART: Regular rate and rhythm, normal S1 and S2 without murmur. ABDOMEN: Soft, nontender, not distended, normoactive bowel sounds, no guarding, Colostomy bag present without any surrounding drainage or erythema. UPPER EXTREMITIES: 2+ pulses, Right hand finger nail discoloration. LOWER EXTREMITIES: 2+ pulses, Lower extremity edema present at base line that has increased as per patient. PSYCHIATRIC: Cooperative. Good eye contact. Appropriate mood and affect. Neuro: awake, alert, cooperative, ?bradykinesia, no evidence of cogwheeling, finger to nose intact, gait deferred SKIN: Warm, dry, no rashes or lesions noted Laboratory Results - last 24 hr 12/21/17 12/21/17 12/21/17 18:38 18:38 18:38 WBC 8.5 RBC 4.78 Hgb 12.2 Hct 37.0 MCV 77.5 L MCH 25.6 L MCHC 33.0 RDW 16.8 H Plt Count 145 MPV 9.8 Absolute Neuts (auto) 6.7 Neutrophils % 78.5 Lymphocytes % 15.5 D Monocytes % 5.1 Eosinophils % 0.3 Basophils % 0.6 Nucleated RBC % 0 PT with INR 13.60 H INR 1.20 H PTT (Actin FS) 28.4 Sodium Potassium Chloride Carbon Dioxide Anion Gap BUN Creatinine Creat Clearance w eGFR Random Glucose Calcium Total Bilirubin AST ALT Alkaline Phosphatase Troponin I B-Natriuretic Peptide Total Protein Albumin Urine Color Urine Appearance Urine pH Ur Specific [place] Urine Protein Urine Glucose (UA) Urine Ketones Urine Blood Urine Nitrite Urine Bilirubin Urine Urobilinogen Ur Leukocyte Esterase Urine WBC (Auto) Urine RBC (Auto) Blood Type A POSITIVE Antibody Screen Negative 12/21/17 12/21/17 18:38 20:21 WBC RBC Hgb Hct MCV MCH MCHC RDW Plt Count MPV Absolute Neuts (auto) Neutrophils % Lymphocytes % Monocytes % Eosinophils % Basophils % Nucleated RBC % PT with INR INR PTT (Actin FS) Sodium 145 Potassium 4.3 Chloride 109 H Carbon Dioxide 26 Anion Gap 10 BUN 18 Creatinine 1.1 H Creat Clearance w eGFR 46.88 Random Glucose 85 Calcium 9.3 Total Bilirubin 0.5 AST 16 ALT 21 Alkaline Phosphatase 48 Troponin I < 0.02 B-Natriuretic Peptide 1883.74 H Total Protein 7.9 Albumin 4.0 Urine Color Yellow Urine Appearance Clear Urine pH 5.0 Ur Specific [place] 1.017 Urine Protein 2+ H Urine Glucose (UA) Negative Urine Ketones Negative Urine Blood Negative Urine Nitrite Negative Urine Bilirubin Negative Urine Urobilinogen Negative Ur Leukocyte Esterase Negative Urine WBC (Auto) <1 Urine RBC (Auto) <1 Blood Type Antibody Screen ASSESSMENT/PLAN: 87 y/o Female presents with PMHx of CHF, Atrial Flutter, Cardiac Stent (2002), HTN, DM, DJD R Hip, ? Parkinsons disease, Hx of Multiple Falls, Chronic R Hip pain presents with an increase in lower extremity swelling over the past few months. 9 months ago, she started to feel off balance accompanied with R leg pain, weakness and b/l Lower extremity swelling (R>L). 5 months ago, reportedly had a R Hip Arthrogram and cortisone injection that did not relieve the pain. For the past few weeks, She has been experiencing blurry vision in her left eye. Patient recently fell and landed on her knees a few days ago. She has described the hip pain as constant, Dull, heaviness, 9/10 that is worse in the evenings and travels down her leg and occasionally feels like numbness/ tingling. She has tried compression stockings with minimal relief. Patient currently lives at home and has visiting nurses during the day for 4-5 days a week, and her daughter stays with her overnight. She currently is wheel chair bound. Denies fevers, chills, chest pain, SOB, dysuria. CT head completed, awaiting official read. Spoke with primary and getting medical optimization, physical therapy. May benefit from short term rehab if amenable and qualifies. Cardiology follow up for LE, edema, CHF. Monitor BP, maintain normotensive range. Follow up duplex. Monitor glucose, maintain normal range, on insulin. Not Parkinson's medications at this time, unclear if she meets this dx, will not add any at this time unless collateral history indicates this is accurate dx. Fall precations, DVT ppx.
[2017-12-22] MEDS: PREGABALIN 75 MG CAPSULE PO SCH (12:54)
--- NOTE | 2017-12-22 16:58 | CON.NEP ---
Consult Consult Specialty:: nephrology Referred by:: fausto bonilla Reason for Consultation:: azotemia - History of Present Illness Chief Complaint: falls, hip pain, azotemia History of Present Illness: admitted with h/o multiple falls and pain in r hip also is on lasix for leg swelling noted with a flutter in er azotemia on labs venous doppler negative for dvt - History Source History Provided By: Medical Record - Alcohol/Substance Use Hx Alcohol Use: No - Smoking History Smoking history: Never smoked Have you smoked in the past 12 months: No Home Medications - Allergies Allergies/Adverse Reactions: Allergies Allergy/AdvReac Type Severity Reaction Status Date / Time No Known Drug Allergies Allergy Verified 07/08/17 15:23 - Home Medications Home Medications: Ambulatory Orders Amlodipine Besylate [Norvasc -] 5 mg PO DAILY 12/21/17 Ascorbic Acid [Vitamin C] 500 mg PO DAILY 12/21/17 Aspirin [ASA -] 81 mg PO DAILY 12/21/17 Atenolol [Tenormin -] 100 mg PO DAILY 12/21/17 Dexlansoprazole [Dexilant] 60 mg PO DAILY 12/21/17 Digoxin [Lanoxin -] 0.125 mg PO DAILY 12/21/17 Fenofibrate Nanocrystallized [Fenofibrate] 54 mg PO DAILY 12/21/17 Ferrous Sulfate 325 mg PO DAILY 12/21/17 Furosemide 20 mg PO DAILY 12/21/17 Glyburide 2.5 mg PO DAILY 12/21/17 Isosorbide Mononitrate [Isosorbide Mononitrate ER] 60 mg PO DAILY 12/21/17 Prednisone 5 mg PO DAILY 12/21/17 Pregabalin [Lyrica -] 75 mg PO DAILY 12/21/17 Nephrology Consult - Height Height: 5 ft 6 in - Weight Weight: 152 lb 6.4 oz - BMI Body Mass Index (BMI): 24.5 - Lab Results CBC,BMP: CBC, BMP 12/22/17 08:33 12/22/17 08:33 Anion Gap: Anion Gap Anion Gap 8 (8-16) 12/22/17 08:33 - Physical Examination Vital Signs: Vital Signs Temperature 98 F 12/22/17 14:35 Pulse Rate 84 12/22/17 14:35 Respiratory Rate 18 12/22/17 14:35 Blood Pressure 135/74 12/22/17 14:35 O2 Sat by Pulse Oximetry (%) 97 12/22/17 01:00 Constitutional: Yes: Well Nourished, No Distress, Calm HENT: Yes: Other (dry mucous membranes) Neck: Yes: WNL Cardiovascular: Yes: WNL Respiratory: Yes: WNL Gastrointestinal: Yes: WNL Musculoskeletal: Yes: Joint Stiffness, Muscle Weakness Neurological: Yes: Weakness Assessment/Plan azotemia recent falls on lasix for leg edema Probably multifactorial including effect of diuretics Plan- encourage oral hydration hold lasix to give prn only
--- NOTE | 2017-12-22 17:31 | CON.CARD ---
Consult Consult Specialty:: Cardiology Referred by:: Dr. Thorne Reason for Consultation:: aflutter - History of Present Illness Chief Complaint: hip pain, edema History of Present Illness: 87 year old woman with pmh HTN, DMII, CAD s/p stent 2002, CHF, DJD chronic R hip pain, Parkinsons dz, h/o multiple falls admitted with chronic R hip pain, edema. Pt seen and examined today in nad. awake and alert but not oriented, c/o mild R flank pain. denies chest pain or sob. - History Source History Provided By: Medical Record Limitations to Obtaining History: Poor Historian - Past Medical History Cardio/Vascular: Yes: CAD, HTN, Hyperlipdemia - Alcohol/Substance Use Hx Alcohol Use: No - Smoking History Smoking history: Never smoked Have you smoked in the past 12 months: No - Social History ADL: Support Services History of Recent Travel: No Home Medications - Allergies Allergies/Adverse Reactions: Allergies Allergy/AdvReac Type Severity Reaction Status Date / Time No Known Drug Allergies Allergy Verified 07/08/17 15:23 - Home Medications Home Medications: Ambulatory Orders Amlodipine Besylate [Norvasc -] 5 mg PO DAILY 12/21/17 Ascorbic Acid [Vitamin C] 500 mg PO DAILY 12/21/17 Aspirin [ASA -] 81 mg PO DAILY 12/21/17 Atenolol [Tenormin -] 100 mg PO DAILY 12/21/17 Dexlansoprazole [Dexilant] 60 mg PO DAILY 12/21/17 Digoxin [Lanoxin -] 0.125 mg PO DAILY 12/21/17 Fenofibrate Nanocrystallized [Fenofibrate] 54 mg PO DAILY 12/21/17 Ferrous Sulfate 325 mg PO DAILY 12/21/17 Furosemide 20 mg PO DAILY 12/21/17 Glyburide 2.5 mg PO DAILY 12/21/17 Isosorbide Mononitrate [Isosorbide Mononitrate ER] 60 mg PO DAILY 12/21/17 Prednisone 5 mg PO DAILY 12/21/17 Pregabalin [Lyrica -] 75 mg PO DAILY 12/21/17 Family Disease History - Family Disease History Family History: Denies Review of Systems - Review of Systems Constitutional: reports: Weakness HENT: reports: No Symptoms Neck: reports: No Symptoms Cardiovascular: reports: Edema, Shortness of Breath Respiratory: reports: No Symptoms Gastrointestinal: reports: Abdominal Pain Genitourinary: reports: No Symptoms Musculoskeletal: reports: Extremity Pain, Muscle Weakness Integumentary: reports: No Symptoms Neurological: reports: No Symptoms Endocrine: reports: No Symptoms Hematology/Lymphatic: reports: No Symptoms Psychiatric: reports: No Symptoms - Risk Factors Known Risk Factors: Yes: Hypercholesterolemia, Hypertension Vital Signs: Vital Signs Temperature 98 F 12/22/17 14:35 Pulse Rate 84 12/22/17 14:35 Respiratory Rate 18 12/22/17 14:35 Blood Pressure 135/74 12/22/17 14:35 O2 Sat by Pulse Oximetry (%) 97 12/22/17 09:00 Constitutional: Yes: No Distress, Calm Eyes: Yes: Conjunctiva Clear, EOM Intact, PERRL HENT: Yes: Atraumatic, Normocephalic Neck: Yes: Supple, Thyromegaly Respiratory: Yes: Regular, Diminished. No: Rales, Rhonchi, Wheezes Gastrointestinal: Yes: Normal Bowel Sounds, Soft. No: Distention, Tenderness Cardiovascular: Yes: Regular Rate and Rhythm. No: Bradycardia, Tachycardia, Pulse Irregular, Gallop, Rub, Varicosities JVD: No Carotid Bruit: No PMI: Non-Displaced Heart Sounds: Yes: S1, S2. No: Split S2, S3, S4, Clicks, Gallop, Rub, Bruit Murmur: No: Systolic Murmur, Diastolic Murmur Musculoskeletal: No: Muscle Weakness Extremities: Yes: Other Edema: No Peripheral Pulses WNL: Yes Neurological: Yes: Alert, Oriented Psychiatric: Yes: Alert, Oriented - Other Data Labs, Other Data: CBC, BMP 12/22/17 08:33 12/22/17 08:33 INR, PTT INR 1.20 (0.83-1.09) H 12/21/17 18:38 Troponin, BNP 12/21/17 18:38 Troponin I < 0.02 B-Natriuretic Peptide 1883.74 H Troponin, BNP 12/21/17 18:38 Troponin I < 0.02 B-Natriuretic Peptide 1883.74 H EKG-Artifact vs aflutter, ant infarct age undetermined Echo: Report Reviewed Imaging - Results Chest X-ray: Report Reviewed, Image Reviewed EKG: Report Reviewed, Image Reviewed Other: Report Reviewed, Image Reviewed Assessment/Plan 87 year old woman with pmh HTN, DMII, CAD s/p stent 2002, CHF, DJD chronic R hip pain, Parkinsons dz, h/o multiple falls admitted with chronic R hip pain, edema. Pt seen and examined today in nad. awake and alert but not oriented, c/o mild R flank pain. denies chest pain or sob. Lower Extremity (R>L) -on exam does not appear to be significant edema RLE, the RLE appears just larger than LLE, this has been documented back to at least 2014, no sig edema LLE -would not diurese on the basis of her legs -her Cxr showed mild pulm vasc congestion and thus she received a dose of Lasix 20mg IV today -can dose Lasix prn for now -LE doppler was done to r/o DVT, results pending -fup echo Atrial Flutter-known history -HR is adequately controlled -can cont current atenolol and digoxin for now -not on AC due to history of life threatening bleed
--- NOTE | 2017-12-22 19:19 | EKG ---
Test Reason : Blood Pressure : / mmHG Vent. Rate : 055 BPM Atrial Rate : 258 BPM P-R Int : 000 ms QRS Dur : 078 ms QT Int : 370 ms P-R-T Axes : 000 -32 070 degrees QTc Int : 353 ms POOR DATA QUALITY, INTERPRETATION MAY BE ADVERSELY AFFECTED UNDETERMINED RHYTHM WITH PREMATURE VENTRICULAR OR ABERRANTLY CONDUCTED COMPLEXES LEFT AXIS DEVIATION MINIMAL VOLTAGE CRITERIA FOR LVH, MAY BE NORMAL VARIANT SEPTAL INFARCT , AGE UNDETERMINED ABNORMAL ECG NO PREVIOUS ECGS AVAILABLE Confirmed by MD CARLOS, MICHELLE ([id number]) on 12/22/2017 7:19:30 PM Referred By: Confirmed By:MICHELLE GONZALEZ MD
[2017-12-22] MEDS ORDERED: PT OWN MED DRAWER 7, Y5N ONE (21:25)
[2017-12-22] MEDS ORDERED: INSULIN (NOVOLOG) ASPART 100 UNITS/ML 10ML VIAL ONE (21:27)
[2017-12-23] MEDS: INSULIN SLIDING SCALE (NOVOLOG) 1 VIAL SQ SCH ×4 (06:08→22:31)
[2017-12-23] MEDS: HEPARIN NA (PORCINE) 5,000 UNITS/ML 1ML VIAL SQ SCH ×3 (06:08→22:31)
[2017-12-23 07:53] LABS: ANION GAP 10 (8-16); BLOOD UREA NITROGEN 20 mg/dL (7-18); CALCIUM 9.3 mg/dL (8.5-10.1); CHLORIDE 105 mmol/L (98-107); CO2 27 mmol/L (21-32); GLUCOSE,RANDOM 138 mg/dL (74-106); MAGNESIUM 2.2 mg/dL (1.8-2.4); POTASSIUM 3.7 mmol/L (3.5-5.1); SODIUM 142 mmol/L (136-145)
[2017-12-23 07:55] LABS: CREATININE 1.1 mg/dL (0.55-1.02); PHOSPHOROUS 3.6 mg/dL (2.5-4.9)
--- NOTE | 2017-12-23 08:13 | PN ---
Teaching Attending Note Name of Resident: Lesli Bolton ATTENDING PHYSICIAN STATEMENT I saw and evaluated the patient. I reviewed the resident's note and discussed the case with the resident. I agree with the resident's findings and plan as documented with exceptions below. SUBJECTIVE: Patient seen and examined. Still with ongoing right hip pain radiating down right leg. More sleepy today though answers questions appropriately. OBJECTIVE: Vital Signs Period Temp Pulse Resp BP Sys/Rodriguez Pulse Ox Last 24 Hr 98 F-98.3 F 73-84 18-20 133-159/53-81 97-97 Intake & Output 12/20/17 12/21/17 12/22/17 12/23/17 23:59 23:59 23:59 23:59 Intake Total 60 240 Balance 60 240 Weight 105 lb 152 lb 6.4 oz 146 lb General; sitting, more sleepy but no acute distress in bed HEENT: dry oral mucosa Neck; No JVD or neck vein distension Chest: CTAB, no Rales or wheezing Abdomen:Soft, NT, positive bowel sounds Extremities: RLE asymmetric, no pitting edema on either extremities SLR RLE unchanged at 20 degrees, LLE upto 35 degrees right knee swelling (chronic per patient) ASSESSMENT AND PLAN: 87 yof with PMhx of CHF, Atrial Flutter, Cardiac Stent (2002), HTN, DM, DJD R Hip, Parkinsons disease, Hx of Multiple Falls, Chronic R Hip pain, right hip arthrogram/Cortisone injection in 07/2017, comes with multiple unwitnessed falls and right hip pain radiating down leg and bilateral lower extremity edema. -Multiple falls -Acute on chronic right hip pain -LE edema, suspect acute CHF (systolic vs diastolic) +/- amlodipine -ZEKE suspect from diuresis+/- hydronephrosis -Atrial flutter -Mild ZEKE with proteinuria -CAD s/p PCI -HTN -?Parkinson's disease -Osteoarthritis Plan: s/p lasix 12/22. Cr rising, clinically dry, hold additional lasix. Encourage oral fluid intake. 2D echo noted. Renal US noted, bilateral hydronephrosis. Bladder scan, check CT A/P . Renal input noted. Cardiology input noted. Continue imdur. Decrease digoxin to 0.125 mg every 48h renal dosing. Hold amlodipine given concerns for leg edema Patient with intra-articular cortisone in 07/2017, ongoing progressive hip pain/ limited ambulation now with worsening symptoms post fall. Orthopedic input noted. TO discuss with daughter (HCP) to address surgical intervention, will follow up. Start tylenol prn for pain. Avoid narcotics given increased sleepiness today. D/ c lyrica. CT brain/Hip/knee/pelvis xrays neg for acute concerns. RLE duplex neg for DVT. ?parkinson's disease. Per son and patient, recent diagnosis, not on medications yet, follow up with neurology. Patient reports being on steroids prednisone 5 mg daily for polymyalgia, per Pharmacy, not filled since 07/2017. Per patient, not compliant with the same, hold off for now. Hold oral DM agents, ISS, diabetic diet. DVTPPx with heparin Hold ASA pending orthopedic input. Dispo pending orthopedic intervention. PT rec SNF. Plan discussed with patient and son at bedside in detail, all questions answered.
--- NOTE | 2017-12-23 09:23 | PN ---
Progress Note (short form) - Note Progress Note: Neurology HISTORY OF PRESENT ILLNESS: 87 y/o Female presents with PMHx of CHF, Atrial Flutter, Cardiac Stent (2002), HTN, DM, DJD R Hip, ? Parkinsons disease, Hx of Multiple Falls, Chronic R Hip pain presents with an increase in lower extremity swelling over the past few months. 9 months ago, she started to feel off balance accompanied with R leg pain, weakness and b/l Lower extremity swelling (R>L). 5 months ago, reportedly had a R Hip Arthrogram and cortisone injection that did not relieve the pain. For the past few weeks, She has been experiencing blurry vision in her left eye. Patient recently fell and landed on her knees a few days ago. She has described the hip pain as constant, Dull, heaviness, 9/10 that is worse in the evenings and travels down her leg and occasionally feels like numbness/ tingling. She has tried compression stockings with minimal relief. Patient currently lives at home and has visiting nurses during the day for 4-5 days a week, and her daughter stays with her overnight. She currently is wheel chair bound. Denies fevers, chills, chest pain, SOB, dysuria. CT head completed, no acute changes. Spoke with primary and getting medical optimization, physical therapy. Resident to inquire regarding PD as no medication on board. Active Medications Ascorbic Acid (Vitamin C -) 500 mg PO DAILY [facility] Atenolol (Tenormin -) 100 mg PO DAILY [facility] Last Admin: 12/22/17 11:20 Dose: 100 mg Digoxin (Lanoxin -) 0.125 mg PO DAILY [facility] Last Admin: 12/22/17 11:19 Dose: 0.125 mg Heparin Sodium (Porcine) (Heparin -) 5,000 unit SQ TID [facility] Last Admin: 12/23/17 06:08 Dose: 5,000 unit Insulin Aspart (Novolog Vial Sliding Scale -) 1 vial SQ ACHS [facility]; Protocol Last Admin: 12/23/17 06:08 Dose: Not Given Isosorbide Mononitrate (Imdur -) 60 mg PO DAILY [facility] Last Admin: 12/22/17 11:19 Dose: 60 mg Pregabalin (Lyrica -) 75 mg PO DAILY [facility] Last Admin: 12/22/17 12:54 Dose: 75 mg PHYSICAL EXAMINATION Vital Signs Period Temp Pulse Resp BP Sys/Rodriguez Pulse Ox Last 24 Hr 98 F-98.3 F 73-84 18-20 133-159/53-81 97 GENERAL: Awake, alert, and fully oriented, in no acute distress. EYES: PERRL, EOMI, sclera anicteric THROAT: oropharynx clear without exudates. Moist mucous membranes. NECK: No JVD, No carotid bruits appreciated LUNGS: Breath sounds equal, clear to auscultation bilaterally. No wheezes. HEART: Regular rate and rhythm, normal S1 and S2 without murmur. ABDOMEN: Soft, nontender, not distended, normoactive bowel sounds, no guarding, Colostomy bag present without any surrounding drainage or erythema. UPPER EXTREMITIES: 2+ pulses, Right hand finger nail discoloration. LOWER EXTREMITIES: 2+ pulses, Lower extremity edema present at base line that has increased as per patient. PSYCHIATRIC: Cooperative. Good eye contact. Appropriate mood and affect. Neuro: awake, alert, cooperative, ?bradykinesia, no evidence of cogwheeling, finger to nose intact, gait deferred SKIN: Warm, dry, no rashes or lesions noted CBCD WBC 9.5 K/mm3 (4.0-10.0) 12/22/17 08:33 RBC 5.11 M/mm3 (3.60-5.2) 12/22/17 08:33 Hgb 13.1 GM/dL (10.7-15.3) 12/22/17 08:33 Hct 39.5 % (32.4-45.2) 12/22/17 08:33 MCV 77.2 fl (80-96) L 12/22/17 08:33 MCHC 33.2 g/dl (32.0-36.0) 12/22/17 08:33 RDW 16.5 % (11.6-15.6) H 12/22/17 08:33 Plt Count 143 K/MM3 (134-434) 12/22/17 08:33 MPV 9.7 fl (7.5-11.1) 12/22/17 08:33 CMP Sodium 142 mmol/L (136-145) 12/23/17 06:00 Potassium 3.7 mmol/L (3.5-5.1) 12/23/17 06:00 Chloride 105 mmol/L (98-107) 12/23/17 06:00 Carbon Dioxide 27 mmol/L (21-32) 12/23/17 06:00 Anion Gap 10 (8-16) 12/23/17 06:00 BUN 20 mg/dL (7-18) H 12/23/17 06:00 Creatinine 1.1 mg/dL (0.55-1.02) H 12/23/17 06:00 Creat Clearance w eGFR 46.88 (>60) 12/23/17 06:00 Random Glucose 138 mg/dL (74-106) H 12/23/17 06:00 Calcium 9.3 mg/dL (8.5-10.1) 12/23/17 06:00 Total Bilirubin 0.6 mg/dL (0.2-1.0) 12/22/17 08:33 AST 18 U/L (15-37) 12/22/17 08:33 ALT 20 U/L (12-78) 12/22/17 08:33 Alkaline Phosphatase 52 U/L (45-117) 12/22/17 08:33 Total Protein 7.9 g/dl (6.4-8.2) 12/22/17 08:33 Albumin 4.0 g/dl (3.4-5.0) 12/22/17 08:33 CARDIAC ENZYMES Troponin I < 0.02 ng/ml (0.00-0.05) 12/21/17 18:38 CT head reviewed ASSESSMENT/PLAN: 87 y/o Female presents with PMHx of CHF, Atrial Flutter, Cardiac Stent (2002), HTN, DM, DJD R Hip, ? Parkinsons disease, Hx of Multiple Falls, Chronic R Hip pain presents with an increase in lower extremity swelling over the past few months. 9 months ago, she started to feel off balance accompanied with R leg pain, weakness and b/l Lower extremity swelling (R>L). 5 months ago, reportedly had a R Hip Arthrogram and cortisone injection that did not relieve the pain. For the past few weeks, She has been experiencing blurry vision in her left eye. Patient recently fell and landed on her knees a few days ago. She has described the hip pain as constant, Dull, heaviness, 9/10 that is worse in the evenings and travels down her leg and occasionally feels like numbness/ tingling. She has tried compression stockings with minimal relief. Patient currently lives at home and has visiting nurses during the day for 4-5 days a week, and her daughter stays with her overnight. She currently is wheel chair bound. Denies fevers, chills, chest pain, SOB, dysuria. CT head completed, no acute changes. Spoke with primary and getting medical optimization, physical therapy. May benefit from short term rehab if amenable and qualifies. Cardiology follow up for LE, edema, CHF. Monitor BP, maintain normotensive range. Resident to inquire regarding parkinson's dx, not on medication. Monitor glucose, maintain normal range, on insulin. Not Parkinson's medications at this time, unclear if she meets this dx, will not add any at this time unless collateral history indicates this is accurate dx. Fall precations, DVT ppx.
--- NOTE | 2017-12-23 09:48 | CON.ORTH ---
Consult Reason for Consultation:: right hip pain - Past Medical History Cardio/Vascular: Yes: CAD, HTN, Hyperlipdemia - Alcohol/Substance Use Hx Alcohol Use: No - Smoking History Smoking history: Never smoked Have you smoked in the past 12 months: No - Social History ADL: Support Services History of Recent Travel: No Home Medications - Allergies Allergies/Adverse Reactions: Allergies Allergy/AdvReac Type Severity Reaction Status Date / Time No Known Drug Allergies Allergy Verified 07/08/17 15:23 - Home Medications Home Medications: Ambulatory Orders Amlodipine Besylate [Norvasc -] 5 mg PO DAILY 12/21/17 Ascorbic Acid [Vitamin C] 500 mg PO DAILY 12/21/17 Aspirin [ASA -] 81 mg PO DAILY 12/21/17 Atenolol [Tenormin -] 100 mg PO DAILY 12/21/17 Dexlansoprazole [Dexilant] 60 mg PO DAILY 12/21/17 Digoxin [Lanoxin -] 0.125 mg PO DAILY 12/21/17 Fenofibrate Nanocrystallized [Fenofibrate] 54 mg PO DAILY 12/21/17 Ferrous Sulfate 325 mg PO DAILY 12/21/17 Furosemide 20 mg PO DAILY 12/21/17 Glyburide 2.5 mg PO DAILY 12/21/17 Isosorbide Mononitrate [Isosorbide Mononitrate ER] 60 mg PO DAILY 12/21/17 Prednisone 5 mg PO DAILY 12/21/17 Pregabalin [Lyrica -] 75 mg PO DAILY 12/21/17 Physical Exam for Ortho Vital Signs: Vital Signs Temperature 98.0 F 12/23/17 06:00 Pulse Rate 73 12/23/17 06:00 Respiratory Rate 20 12/22/17 21:48 Blood Pressure 133/53 12/23/17 06:00 O2 Sat by Pulse Oximetry (%) 97 12/22/17 21:00 Labs: CBC, BMP 12/22/17 08:33 12/23/17 06:00 INR, PTT INR 1.20 (0.83-1.09) H 12/21/17 18:38 - Lower Extremity Hip: Yes: Right, Decreased ROM, Pain, Swelling, Other (nvi) Knee: Yes: Right, Limited ROM, Pain, Swelling, Tenderness, Other (nvi) Imaging - Results X-ray: Report Reviewed, Image Reviewed Assessment/Plan 87 year old woman with pmh HTN, DMII, CAD s/p stent 2002, CHF, DJD chronic R hip pain, Parkinsons dz, h/o multiple falls admitted with chronic R hip pain, edema. Pt seen and examined today in nad. right hip and knee pain when pt tries to stand/ambulate. a/p right hip grade 4 djd, right knee djd Risks and benefits were d/w pt in detail Pt defers surgical treatment (hip replacement) will contact pts daughter to discuss PT eval wbat d/w Dr. Pride
[2017-12-23] MEDS ORDERED: PT OWN MED DRAWER 7, Y5N ONE (10:15)
[2017-12-23] MEDS: DIGOXIN 0.125 MG TABLET (FP) PO SCH (10:50)
[2017-12-23] MEDS: ATENOLOL 50 MG TABLET (FP) PO SCH (10:50)
[2017-12-23] MEDS: ISOSORBIDE MONONITRATE 60 MG TAB.SR.24H (FP) PO SCH (10:50)
[2017-12-23] MEDS: ASCORBIC ACID 500 MG TABLET (FP) PO SCH (10:50)
[2017-12-23] MEDS: PREGABALIN 75 MG CAPSULE PO SCH (10:50)
--- NOTE | 2017-12-23 13:08 | PN ---
Progress Note, Physician History of Present Illness: Pt seen and examined at bedside. She is awake and alert. She feels that her breathing is improved. - Current Medication List Current Medications: Active Medications Ascorbic Acid (Vitamin C -) 500 mg PO DAILY [facility] Last Admin: 12/23/17 10:50 Dose: 500 mg Atenolol (Tenormin -) 100 mg PO DAILY [facility] Last Admin: 12/23/17 10:50 Dose: 100 mg Digoxin (Lanoxin -) 0.125 mg PO DAILY [facility] Last Admin: 12/23/17 10:50 Dose: 0.125 mg Heparin Sodium (Porcine) (Heparin -) 5,000 unit SQ TID [facility] Last Admin: 12/23/17 06:08 Dose: 5,000 unit Insulin Aspart (Novolog Vial Sliding Scale -) 1 vial SQ ACHS [facility]; Protocol Last Admin: 12/23/17 11:50 Dose: Not Given Isosorbide Mononitrate (Imdur -) 60 mg PO DAILY [facility] Last Admin: 12/23/17 10:50 Dose: 60 mg Pregabalin (Lyrica -) 75 mg PO DAILY [facility] Last Admin: 12/23/17 10:50 Dose: Not Given - Objective Vital Signs: Vital Signs Temperature 98.2 F 12/23/17 10:00 Pulse Rate 75 12/23/17 10:50 Respiratory Rate 20 12/23/17 10:00 Blood Pressure 150/56 12/23/17 10:00 O2 Sat by Pulse Oximetry (%) 97 12/23/17 09:00 Constitutional: Yes: Calm, Mild Distress HENT: Yes: Atraumatic Cardiovascular: Yes: S1, S2 Respiratory: Yes: On Nasal O2 Gastrointestinal: Yes: Soft Genitourinary: Yes: Incontinence Musculoskeletal: Yes: Muscle Weakness Edema: Yes Edema: LLE: Trace, RLE: Trace Neurological: Yes: Oriented Psychiatric: Yes: Oriented Labs: CBC, BMP 12/22/17 08:33 12/23/17 06:00 INR, PTT INR 1.20 (0.83-1.09) H 12/21/17 18:38 Problem List - Problems (1) Azotemia Code(s): R79.89 - OTHER SPECIFIED ABNORMAL FINDINGS OF BLOOD CHEMISTRY (2) Atrial flutter by electrocardiogram Code(s): I48.92 - UNSPECIFIED ATRIAL FLUTTER Assessment/Plan Current Medications Generic Name Dose Route Start Last Admin Trade Name Aminata PRN Reason Stop Dose Admin Ascorbic Acid 500 mg 12/23/17 10:00 12/23/17 10:50 Vitamin C - PO 500 mg DAILY [facility] Administration Atenolol 100 mg 12/22/17 10:00 12/23/17 10:50 Tenormin - PO 100 mg DAILY [facility] Administration Digoxin 0.125 mg 12/22/17 10:00 12/23/17 10:50 Lanoxin - PO 0.125 mg DAILY [facility] Administration Heparin Sodium (Porcine) 5,000 unit 12/22/17 06:00 12/23/17 06:08 Heparin - SQ 5,000 unit TID [facility] Administration Insulin Aspart 1 vial 12/22/17 07:00 12/23/17 11:50 Novolog Vial Sliding Scale - SQ Not Given ACHS [facility] Protocol Isosorbide Mononitrate 60 mg 12/22/17 10:00 12/23/17 10:50 Imdur - PO 60 mg DAILY [facility] Administration Pregabalin 75 mg 12/22/17 11:30 12/23/17 10:50 Lyrica - PO Not Given DAILY [facility] Impression 1. Azotemia 2. a-flutter 3. frequent falls 4. CAD 5. HTN 6. 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
--- NOTE | 2017-12-23 13:49 | ECHO ---
Name: MARIA L REDD Exam:Adult Echocardiogram Study Date: 12/23/2017 09:53 AM Age: 87 yrs Reason For Study: CHF/ AFLUTTER Height: 66 in Weight: 152 lb BSA: 1.8 m2 MMode/2D Measurements & Calculations IVSd: 0.82 cm Ao root diam: 2.4 cm LVIDd: 4.1 cm LA dimension: 3.7 cm LVIDs: 2.6 cm LVPWd: 0.65 cm EDV(Teich): 76.3 ml LVOT diam: 2.2 cm ESV(Teich): 24.8 ml TAPSE: 1.3 cm RV S Miguel: 11.2 cm/sec Doppler Measurements & Calculations MV E max miguel: 100.2 cm/sec Ao V2 max: 273.2 cm/sec MV A max miguel: 29.6 cm/sec Ao max P.0 mmHg MV E/A: 3.4 Ao V2 mean: 168.9 cm/sec MV dec time: 0.22 sec Ao mean P.5 mmHg Ao V2 VTI: 55.6 cm FELIX(I,D): 1.1 cm2 FELIX(V,D): 1.1 cm2 LV V1 max P.9 mmHg MR max miguel: 331.7 cm/sec LV V1 mean P.3 mmHg MR max P.5 mmHg LV V1 max: 84.4 cm/sec LV V1 mean: 53.3 cm/sec LV V1 VTI: 16.3 cm SV(LVOT): 59.4 ml TR max miguel: 234.2 cm/sec TR max P.0 mmHg Med Peak E' Miguel: 5.9 cm/sec Med E/e': 16.9 Lat Peak E' Miguel: 8.6 cm/sec Lat E/e': 11.7 Procedure The study was technically adequate with some images being suboptimal in quality. Left Ventricle The left ventricular size, thickness and function are normal. Ejection Fraction = 65-70%. Right Ventricle The right ventricle is normal in size and function. Atria Normal left and right atrial size and function. Mitral Valve There is mild mitral annular calcification. The mitral valve is grossly normal. There is mild mitral regurgitation. Tricuspid Valve The tricuspid valve is not well visualized. There is trace tricuspid regurgitation. There was insuffi cient TR detected to calculate RV systolic pressure. Aortic Valve There is moderate aortic sclerosis.;. The aortic valve opens well. No aortic regurgitation is present . Pulmonic Valve The pulmonic valve is not well visualized. Great Vessels The aortic root is normal size. Pericardium/Pleura There is no pericardial effusion. Interpretation Summary There is no comparison study available. The left ventricular size, thickness and function are normal The right ventricle is normal in size and function. There is moderate aortic sclerosis.; There is mild mitral annular calcification. There is mild mitral regurgitation. There is trace tricuspid regurgitation. Edson Ochoa MD 12/23/2017 01:48 PM
--- NOTE | 2017-12-23 18:25 | PN ---
Physical Exam: SUBJECTIVE: Patient seen and examined this morning at bedside. She had some difficulty with PT yesterday that she attributes to using Lyrica. Slept fine with no new complaints. 1 Large BM however no appetite. Denies dysuria, heamturia. Denies fevers, chills, chest pain, SOB, nausea, vomiting, diarrhea, constipation. Patient was more lethargic than on previous examinations. Additionally complains of blurry vision. OBJECTIVE: Vital Signs Period Temp Pulse Resp BP Sys/Rodriguez Pulse Ox Last 24 Hr 98.0 F-98.3 F 73-84 20-20 133-159/53-81 97-97 GENERAL: Awake but Lethargic, alert, and fully oriented, in no acute distress. EYES: PERRL, EOMI THROAT: oropharynx clear without exudates. Dry mucous membranes. NECK: No JVD LUNGS: Breath sounds equal, clear to auscultation bilaterally. No wheezes. HEART: Regular rate and rhythm, normal S1 and S2 without murmur. ABDOMEN: Soft, nontender, not distended, normoactive bowel sounds, Colostomy bag present without any surrounding drainage or erythema. LOWER EXTREMITIES: 2+ pulses, Lower extremity edema present at base line that has remained the same since previous exam, R>L. Laboratory Results - last 24 hr 12/22/17 12/22/17 12/23/17 17:35 21:38 06:00 Sodium 142 Potassium 3.7 Chloride 105 Carbon Dioxide 27 Anion Gap 10 BUN 20 H Creatinine 1.1 H Creat Clearance w eGFR 46.88 POC Glucometer 162 109 Random Glucose 138 H Calcium 9.3 Phosphorus 3.6 Magnesium 2.2 12/23/17 12/23/17 12/23/17 06:07 11:39 17:22 Sodium Potassium Chloride Carbon Dioxide Anion Gap BUN Creatinine Creat Clearance w eGFR POC Glucometer 134 125 136 Random Glucose Calcium Phosphorus Magnesium Active Medications Acetaminophen (Tylenol -) 650 mg PO Q6H PRN PRN Reason: PAIN Ascorbic Acid (Vitamin C -) 500 mg PO DAILY REPLACED BY [facility] Last Admin: 12/23/17 10:50 Dose: 500 mg Atenolol (Tenormin -) 100 mg PO DAILY REPLACED BY [facility] Last Admin: 12/23/17 10:50 Dose: 100 mg Digoxin (Lanoxin -) 0.125 mg PO Q48H REPLACED BY [facility] Docusate Sodium (Colace -) 100 mg PO BID REPLACED BY [facility] Heparin Sodium (Porcine) (Heparin -) 5,000 unit SQ TID REPLACED BY [facility] Last Admin: 12/23/17 13:56 Dose: 5,000 unit Insulin Aspart (Novolog Vial Sliding Scale -) 1 vial SQ ACHS REPLACED BY [facility]; Protocol Last Admin: 12/23/17 17:23 Dose: Not Given Isosorbide Mononitrate (Imdur -) 60 mg PO DAILY REPLACED BY [facility] Last Admin: 12/23/17 10:50 Dose: 60 mg Senna (Senna -) 2 tab PO HS REPLACED BY [facility] IMAGING: - EKG: UNDETERMINED RHYTHM WITH PREMATURE VENTRICULAR OR ABERRANTLY CONDUCTED COMPLEXES, LEFT AXIS DEVIATION, MINIMAL VOLTAGE CRITERIA FOR LVH, MAY BE NORMAL VARIANT SEPTAL INFARCT , AGE UNDETERMINED - ECHO: LV Size, function and thickness are normal. RV is normal in Size and function. Moderate , Mild MR, Trace TR, Mild mitral annular calcifications - US DUPLEX: No DVT is identified involving the right leg. - CT Head without contrast: No CT evidence of acute intracranial pathology - CXR: There are no prior studies for comparison. There are degenerative changes , scoliosis and possible bone island in the proximal left humerus. A gross fracture is not seen. There are lower left chest wall clips. There is a large heart, sclerotic unfolded aorta and coarse lung changes compatible with some congestion. The angles are sharp. The soft tissues are intact. Correlation recommended. For more complete evaluation, further imaging with CT or comparison to prior studies may be of help. - XRay Hip and Pelvis: Arthritic changes. Left ostomy site. Right abdominal clip. Acute fracture or subluxation is not seen. If symptoms persist or there is decreased range of motion then further imaging with CT is suggested to exclude subtle bone pathology. - XRay Knee: Loss of bone density. Arthritic changes. Vascular calcifications. - Kidney, Renal US: Mild bilateral hydronephrosis is noted. Abdomen/pelvis CT evaluation may be considered. - CT Abdomen/Pelvis without contrast: ASSESSMENT/PLAN: 87 y/o Female presents with PMHx of CHF, Atrial Flutter, Cardiac Stent (2002), HTN, DM, DJD R Hip, Parkinsons disease, Hx of Multiple Falls, Chronic R Hip pain presents with an increase in lower extremity swelling. 1. Lower Extremity swelling (R>L) - Chronic swelling at baseline that has increased over the past few months in the setting of multiple recent falls and being wheel chair bound - Has tried increasing home dose Lasix to 20mg and using compression stalking without relief - Consider this is sequlae of Norvasc use, will stop Norvasc for now - Hx of CHF, Parkinsons disease, Multiple falls - Pain control with Acetaminophen 650 mg PO Q6H PRN - Hold Home dose Lyrica as patient was somnolent today - Physical Therapy request - S/P Lasix x1 dose (12/22), Will hold additional Lasix doses as Cr Rising - Encourage oral fluid intake - Neurology (Dr. Padilla) Consulted, Appreciate Rec's, Medical optimization, physical therapy, inquire regarding parkinson's dx - Cardiology (Dr. Cowan) consulted, Appreciate Rec's, would not diurese on the basis of her legs, dose Lasix prn, cont current atenolol and digoxin - Ortho (Dr. Pride) consulted, Appreciate rec's, Pt defers surgical treatment ( hip replacement), will contact pts daughter to discuss - RLE Duplex, Knee and Hip XRay, Head CT, CXR, ECHO noted above - Lipid panel noted 2. ZEKE - Elevated Cr, UA: 2+ Protien - Ordered Urine Protein:Cr Ratio - Renal Ultrasound: Mild bilateral hydronephrosis - Nephrology (Dr. Thorpe) consulted, appreciate rec's, hold off lasix today, check urine prt to director compensation ratio, monitor volume status 3. DM - Hold home medications - BGM, ISS ACHS 4. Parkinsons disease - Also has a Hx of Multiple Falls - This is apparently a recent diagnosis and she has not been started on medications yet - Neurology (Dr. Padilla) Consulted 5. Atrial Flutter - Cardiology (Dr. Cowan) consulted - Continue home meds 6. HTN - Will Decrease digoxin to 0.125mg Q48h (renally dosed) - Will Continue home meds, Hold Amlodipine 7. PPx - DVT: Heparin 5000unit SQ TID Visit type - Emergency Visit Emergency Visit: Yes ED Registration Date: 12/22/17 Care time: The patient presented to the Emergency Department on the above date and was hospitalized for further evaluation of their emergent condition. - New Patient This patient is new to me today: No - Critical Care Critical Care patient: No
[2017-12-23] MEDS: DOCUSATE SODIUM 100 MG CAPSULE (FP) PO SCH (22:31)
[2017-12-23] MEDS: SENNOSIDES 8.6MG TABLET (FP) PO SCH (22:31)
[2017-12-24] MEDS: INSULIN SLIDING SCALE (NOVOLOG) 1 VIAL SQ SCH ×4 (06:17→21:21)
[2017-12-24] MEDS: HEPARIN NA (PORCINE) 5,000 UNITS/ML 1ML VIAL SQ SCH ×3 (06:17→21:30)
[2017-12-24 08:12] LABS: CHLORIDE 105 mmol/L (98-107); POTASSIUM 3.4 mmol/L (3.5-5.1); SODIUM 142 mmol/L (136-145)
[2017-12-24 08:17] LABS: ANION GAP 10 (8-16); BLOOD UREA NITROGEN 31 mg/dL (7-18); CALCIUM 8.9 mg/dL (8.5-10.1); CO2 27 mmol/L (21-32); CREATININE 1.2 mg/dL (0.55-1.02); GLUCOSE,RANDOM 94 mg/dL (74-106); MAGNESIUM 2.2 mg/dL (1.8-2.4); PHOSPHOROUS 3.4 mg/dL (2.5-4.9)
--- NOTE | 2017-12-24 09:16 | PN ---
Progress Note (short form) - Note Progress Note: Neurology HISTORY OF PRESENT ILLNESS: 87 y/o Female presents with PMHx of CHF, Atrial Flutter, Cardiac Stent (2002), HTN, DM, DJD R Hip, ? Parkinsons disease, Hx of Multiple Falls, Chronic R Hip pain presents with an increase in lower extremity swelling over the past few months. 9 months ago, she started to feel off balance accompanied with R leg pain, weakness and b/l Lower extremity swelling (R>L). 5 months ago, reportedly had a R Hip Arthrogram and cortisone injection that did not relieve the pain. For the past few weeks, She has been experiencing blurry vision in her left eye. Patient recently fell and landed on her knees a few days ago. She has described the hip pain as constant, Dull, heaviness, 9/10 that is worse in the evenings and travels down her leg and occasionally feels like numbness/ tingling. She has tried compression stockings with minimal relief. Patient currently lives at home and has visiting nurses during the day for 4-5 days a week, and her daughter stays with her overnight. She currently is wheel chair bound. Denies fevers, chills, chest pain, SOB, dysuria. CT head completed, no acute changes. Spoke with primary and getting medical optimization, physical therapy. Resident to inquire regarding PD as no medication on board. Will connect with primary team on this. More awake, alert and interactive today. Slowness in movement but otherwise appears possibly close to baseline. Active Medications Acetaminophen (Tylenol -) 650 mg PO Q6H PRN PRN Reason: PAIN Ascorbic Acid (Vitamin C -) 500 mg PO DAILY [facility] Last Admin: 12/23/17 10:50 Dose: 500 mg Atenolol (Tenormin -) 100 mg PO DAILY [facility] Last Admin: 12/23/17 10:50 Dose: 100 mg Digoxin (Lanoxin -) 0.125 mg PO Q48H [facility] Docusate Sodium (Colace -) 100 mg PO BID [facility] Last Admin: 12/23/17 22:31 Dose: 100 mg Heparin Sodium (Porcine) (Heparin -) 5,000 unit SQ TID [facility] Last Admin: 12/24/17 06:17 Dose: 5,000 unit Insulin Aspart (Novolog Vial Sliding Scale -) 1 vial SQ ACHS [facility]; Protocol Last Admin: 12/24/17 06:17 Dose: Not Given Isosorbide Mononitrate (Imdur -) 60 mg PO DAILY [facility] Last Admin: 12/23/17 10:50 Dose: 60 mg Senna (Senna -) 2 tab PO HS [facility] Last Admin: 12/23/17 22:31 Dose: 2 tab PHYSICAL EXAMINATION Vital Signs Period Temp Pulse Resp BP Sys/Rodriguez Pulse Ox Last 24 Hr 97.8 F-98.2 F 18-75 20-70 147-150/56-63 97 GENERAL: Awake, alert, and fully oriented, in no acute distress. EYES: PERRL, EOMI, sclera anicteric THROAT: oropharynx clear without exudates. Moist mucous membranes. NECK: No JVD, No carotid bruits appreciated LUNGS: Breath sounds equal, clear to auscultation bilaterally. No wheezes. HEART: Regular rate and rhythm, normal S1 and S2 without murmur. ABDOMEN: Soft, nontender, not distended, normoactive bowel sounds, no guarding, Colostomy bag present without any surrounding drainage or erythema. UPPER EXTREMITIES: 2+ pulses, Right hand finger nail discoloration. LOWER EXTREMITIES: 2+ pulses, Lower extremity edema present at base line that has increased as per patient. PSYCHIATRIC: Cooperative. Good eye contact. Appropriate mood and affect. Neuro: awake, alert, cooperative, ?bradykinesia, no evidence of cogwheeling, finger to nose intact, gait deferred SKIN: Warm, dry, no rashes or lesions noted CBCD WBC 9.5 K/mm3 (4.0-10.0) 12/22/17 08:33 RBC 5.11 M/mm3 (3.60-5.2) 12/22/17 08:33 Hgb 13.1 GM/dL (10.7-15.3) 12/22/17 08:33 Hct 39.5 % (32.4-45.2) 12/22/17 08:33 MCV 77.2 fl (80-96) L 12/22/17 08:33 MCHC 33.2 g/dl (32.0-36.0) 12/22/17 08:33 RDW 16.5 % (11.6-15.6) H 12/22/17 08:33 Plt Count 143 K/MM3 (134-434) 12/22/17 08:33 MPV 9.7 fl (7.5-11.1) 12/22/17 08:33 CMP Sodium 142 mmol/L (136-145) 12/24/17 06:00 Potassium 3.4 mmol/L (3.5-5.1) L 12/24/17 06:00 Chloride 105 mmol/L (98-107) 12/24/17 06:00 Carbon Dioxide 27 mmol/L (21-32) 12/24/17 06:00 Anion Gap 10 (8-16) 12/24/17 06:00 BUN 31 mg/dL (7-18) H 12/24/17 06:00 Creatinine 1.2 mg/dL (0.55-1.02) H 12/24/17 06:00 Creat Clearance w eGFR 42.40 (>60) 12/24/17 06:00 Calcium 8.9 mg/dL (8.5-10.1) 12/24/17 06:00 Total Bilirubin 0.6 mg/dL (0.2-1.0) 12/22/17 08:33 AST 18 U/L (15-37) 12/22/17 08:33 ALT 20 U/L (12-78) 12/22/17 08:33 Alkaline Phosphatase 52 U/L (45-117) 12/22/17 08:33 Total Protein 7.9 g/dl (6.4-8.2) 12/22/17 08:33 Albumin 4.0 g/dl (3.4-5.0) 12/22/17 08:33 CT head reviewed ASSESSMENT/PLAN: 87 y/o Female presents with PMHx of CHF, Atrial Flutter, Cardiac Stent (2002), HTN, DM, DJD R Hip, ? Parkinsons disease, Hx of Multiple Falls, Chronic R Hip pain presents with an increase in lower extremity swelling over the past few months. 9 months ago, she started to feel off balance accompanied with R leg pain, weakness and b/l Lower extremity swelling (R>L). 5 months ago, reportedly had a R Hip Arthrogram and cortisone injection that did not relieve the pain. For the past few weeks, She has been experiencing blurry vision in her left eye. Patient recently fell and landed on her knees a few days ago. CT head completed, no acute changes. Spoke with primary and getting medical optimization , physical therapy. May benefit from short term rehab if amenable and qualifies. Cardiology follow up for LE, edema, CHF. Monitor BP, maintain normotensive range. Resident to inquire regarding parkinson's dx, not on medication. Monitor glucose, maintain normal range, on insulin. Not on Parkinson 's medications at this time, unclear if she meets this dx, will not add any at this time unless collateral history indicates this is accurate dx. Fall precations, DVT ppx. Mental status appears improved and more interactive.
[2017-12-24] MEDS: ATENOLOL 50 MG TABLET (FP) PO SCH (09:45)
[2017-12-24] MEDS: ISOSORBIDE MONONITRATE 60 MG TAB.SR.24H (FP) PO SCH (09:45)
[2017-12-24] MEDS: ASCORBIC ACID 500 MG TABLET (FP) PO SCH (09:45)
[2017-12-24] MEDS: DOCUSATE SODIUM 100 MG CAPSULE (FP) PO SCH ×3 (09:45→21:29)
--- NOTE | 2017-12-24 14:11 | PN ---
Teaching Attending Note Name of Resident: Lesli Bolton ATTENDING PHYSICIAN STATEMENT I saw and evaluated the patient. I reviewed the resident's note and discussed the case with the resident. I agree with the resident's findings and plan as documented. SUBJECTIVE:c/o Hip pain when standing. states there is no pain at rest. states she feels more sleepy than usual and has only had this since admitted to the hospital. only new medication OBJECTIVE: Last Vital Signs Temp Pulse Resp BP Pulse Ox 98.3 F 18 L 66 H 132/50 97 12/24/17 09:48 12/24/17 09:48 12/24/17 09:48 12/24/17 09:48 12/24/17 09:00 General NAD, slow to respond, A&O x3 CV S1 S2 RRR no murmur/rub/gallop Lungs CTA B/L no wheezing/rales/rhonchi Extremities no point tenderness sensation grossly intact. strength 0/5 RLE 1/5 LLE no edema ASSESSMENT AND PLAN: 87 yo F with PMhx of CHF, Atrial Flutter, Cardiac Stent (2002), HTN, DM, DJD R Hip, Parkinsons disease, Hx of Multiple Falls, Chronic R Hip pain, right hip arthrogram/Cortisone injection in 07/2017, comes with multiple unwitnessed falls and right hip pain radiating down leg and bilateral lower extremity edema. 1. Multiple falls- liekly due to increasing weakness and chronic R hip pain. only able to take several steps with PT due to pain. evaluted by neuro and no other 2. Acute on chronic right hip pain- hx of inter-articular injection in the past. would benefit from THR. initially opposed. today is saying she agrees to surgery. will call and notify ortho of the decision to see if they plan to perform on this hospital admission 3. LE edema, suspect acute CHF (systolic vs diastolic) +/- amlodipine- now resolved. echo not showing any heart failure. norvasc was held. edema appears resolved. would cont to hold. doppler neg for dvt 4. ZEKE - showing B/L hydro on u/s. possible medication induced. CT done to further evaluate. hold lasix and nephrotoxic agetns. fluids stopped 5. Lethargy- no recent changes. is alert and follow commands. lyrica was held starting yesterday. will monitor to see if it improves. not taking prednisone at home. would hold. 6. Atrial flutter 7. CAD s/p PCI 8. HTN- controlled 9. Parkinson's disease- not started on medications. would cont to hold. neuro on board 10. Osteoarthritis 11. DM- hold oral agents. iss and BGM monitoring 12. DVT ppx- hep sq 13. spoke with daughter present at bedside. all questions answered. verbalized understanding of plan. agreeable to ERIK placement when medically optimized.
--- NOTE | 2017-12-24 15:34 | PN ---
Physical Exam: SUBJECTIVE: Patient seen and examined this morning at bedside. Continues to have pain with movement, no pain at rest. Denies fevers, chills, chest pain, SOB, nausea, vomiting, diarrhea, constipation. Patient continues to be sleepy during examinations however she is able to answer questions. OBJECTIVE: Vital Signs Period Temp Pulse Resp BP Sys/Rodriguez Pulse Ox Last 24 Hr 97.8 F-98.3 F 18-70 66-70 132-150/50-63 97-97 GENERAL: Awake, alert, and fully oriented, in no acute distress. EYES: PERRL, EOMI THROAT: oropharynx clear without exudates. Dry mucous membranes. NECK: No JVD LUNGS: Breath sounds equal, clear to auscultation bilaterally. No wheezes. HEART: Regular rate and rhythm, normal S1 and S2 without murmur. ABDOMEN: Soft, nontender, not distended, normoactive bowel sounds, Colostomy bag present without any surrounding drainage or erythema. LOWER EXTREMITIES: 2+ pulses, L4-S1 gross sensation intact bilaterally, Muscle strength 2/5 b/l, Appear enlarged however this is her base line, R>L. Laboratory Results - last 24 hr 12/23/17 12/23/17 12/24/17 17:22 22:30 06:00 Sodium 142 Potassium 3.4 L Chloride 105 Carbon Dioxide 27 Anion Gap 10 BUN 31 H Creatinine 1.2 H Creat Clearance w eGFR 42.40 POC Glucometer 136 93 Random Glucose 94 Calcium 8.9 Phosphorus 3.4 Magnesium 2.2 Active Medications Acetaminophen (Tylenol -) 650 mg PO Q6H PRN PRN Reason: PAIN Ascorbic Acid (Vitamin C -) 500 mg PO DAILY [facility] Last Admin: 12/24/17 09:45 Dose: 500 mg Atenolol (Tenormin -) 100 mg PO DAILY [facility] Last Admin: 12/24/17 09:45 Dose: 100 mg Digoxin (Lanoxin -) 0.125 mg PO Q48H [facility] Docusate Sodium (Colace -) 100 mg PO BID [facility] Last Admin: 12/24/17 09:47 Dose: Not Given Heparin Sodium (Porcine) (Heparin -) 5,000 unit SQ TID [facility] Last Admin: 12/24/17 14:58 Dose: 5,000 unit Insulin Aspart (Novolog Vial Sliding Scale -) 1 vial SQ ACHS [facility]; Protocol Last Admin: 12/24/17 12:25 Dose: Not Given Isosorbide Mononitrate (Imdur -) 60 mg PO DAILY [facility] Last Admin: 12/24/17 09:45 Dose: 60 mg Senna (Senna -) 2 tab PO HS [facility] Last Admin: 12/23/17 22:31 Dose: 2 tab IMAGING: - EKG: UNDETERMINED RHYTHM WITH PREMATURE VENTRICULAR OR ABERRANTLY CONDUCTED COMPLEXES, LEFT AXIS DEVIATION, MINIMAL VOLTAGE CRITERIA FOR LVH, MAY BE NORMAL VARIANT SEPTAL INFARCT , AGE UNDETERMINED - ECHO: LV Size, function and thickness are normal. RV is normal in Size and function. Moderate , Mild MR, Trace TR, Mild mitral annular calcifications - US DUPLEX: No DVT is identified involving the right leg. - CT Head without contrast: No CT evidence of acute intracranial pathology - CXR: There are no prior studies for comparison. There are degenerative changes , scoliosis and possible bone island in the proximal left humerus. A gross fracture is not seen. There are lower left chest wall clips. There is a large heart, sclerotic unfolded aorta and coarse lung changes compatible with some congestion. The angles are sharp. The soft tissues are intact. Correlation recommended. For more complete evaluation, further imaging with CT or comparison to prior studies may be of help. - XRay Hip and Pelvis: Arthritic changes. Left ostomy site. Right abdominal clip. Acute fracture or subluxation is not seen. If symptoms persist or there is decreased range of motion then further imaging with CT is suggested to exclude subtle bone pathology. - XRay Knee: Loss of bone density. Arthritic changes. Vascular calcifications. - Kidney, Renal US: Mild bilateral hydronephrosis is noted. Abdomen/pelvis CT evaluation may be considered. - CT Abdomen/Pelvis without contrast: ASSESSMENT/PLAN: 87 y/o Female presents with PMHx of CHF, Atrial Flutter, Cardiac Stent (2002), HTN, DM, DJD R Hip, Parkinsons disease, Hx of Multiple Falls, Chronic R Hip pain presents with an increase in lower extremity swelling. 1. Lower Extremity swelling (R>L) - Chronic swelling at baseline that has increased over the past few months in the setting of multiple recent falls and being wheel chair bound - Has tried increasing home dose Lasix to 20mg and using compression stalking without relief - Consider this is sequlae of Norvasc use, will stop Norvasc for now - Hx of CHF, Parkinsons disease, Multiple falls - Pain control with Acetaminophen 650 mg PO Q6H PRN - Hold Home dose Lyrica as patient continues to be sleepy during examination - Physical Therapy requested - S/P Lasix x1 dose (12/22), Will hold additional Lasix doses as Cr Rising - Encourage oral fluid intake - Neurology (Dr. Padilla) Consulted, Appreciate Rec's, Medical optimization, physical therapy, inquire regarding parkinson's dx - Cardiology (Dr. Cowan) consulted, Appreciate Rec's, would not diurese on the basis of her legs, dose Lasix prn, cont current atenolol and digoxin - Ortho (Dr. Pride) consulted, Appreciate rec's, Has tried Interarticular injection in July however minimal relief, Pt defered surgical treatment yesterday however she agrees this morning (hip replacement), will contact Ortho to f/u - RLE Duplex, Knee and Hip XRay, Head CT, CXR, ECHO noted above - Lipid panel noted 2. ZEKE - Elevated Cr, UA: 2+ Protien - Ordered Urine Protein:Cr Ratio - Renal Ultrasound: Mild bilateral hydronephrosis - Nephrology (Dr. Thorpe) consulted, appreciate rec's, hold off lasix today, check urine prt to lens hardener ratio, monitor volume status 3. DM - Hold home medications - BGM, ISS ACHS 4. Parkinsons disease - Also has a Hx of Multiple Falls - This is apparently a recent diagnosis and she has not been started on medications yet - Neurology (Dr. Padilla) Consulted 5. Atrial Flutter - Cardiology (Dr. Cowan) consulted - Continue home meds 6. HTN - Will Decrease digoxin to 0.125mg Q48h (renally dosed) - Will Continue home meds, Hold Amlodipine 7. PPx - DVT: Heparin 5000unit SQ TID Visit type - Emergency Visit Emergency Visit: Yes ED Registration Date: 12/22/17 Care time: The patient presented to the Emergency Department on the above date and was hospitalized for further evaluation of their emergent condition. - New Patient This patient is new to me today: No - Critical Care Critical Care patient: No
--- NOTE | 2017-12-24 16:21 | PN ---
Progress Note, Physician History of Present Illness: Pt seen and examined at bedside. She is awake and alert. She denies shortness of breath. - Current Medication List Current Medications: Active Medications Acetaminophen (Tylenol -) 650 mg PO Q6H PRN PRN Reason: PAIN Ascorbic Acid (Vitamin C -) 500 mg PO DAILY [facility] Last Admin: 12/24/17 09:45 Dose: 500 mg Atenolol (Tenormin -) 100 mg PO DAILY [facility] Last Admin: 12/24/17 09:45 Dose: 100 mg Digoxin (Lanoxin -) 0.125 mg PO Q48H [facility] Docusate Sodium (Colace -) 100 mg PO BID [facility] Last Admin: 12/24/17 09:47 Dose: Not Given Heparin Sodium (Porcine) (Heparin -) 5,000 unit SQ TID [facility] Last Admin: 12/24/17 14:58 Dose: 5,000 unit Insulin Aspart (Novolog Vial Sliding Scale -) 1 vial SQ ACHS [facility]; Protocol Last Admin: 12/24/17 12:25 Dose: Not Given Isosorbide Mononitrate (Imdur -) 60 mg PO DAILY [facility] Last Admin: 12/24/17 09:45 Dose: 60 mg Senna (Senna -) 2 tab PO HS [facility] Last Admin: 12/23/17 22:31 Dose: 2 tab - Objective Vital Signs: Vital Signs Temperature 98.3 F 12/24/17 09:48 Pulse Rate 18 L 12/24/17 09:48 Respiratory Rate 66 H 12/24/17 09:48 Blood Pressure 132/50 12/24/17 09:48 O2 Sat by Pulse Oximetry (%) 97 12/24/17 09:00 Constitutional: Yes: Calm Cardiovascular: Yes: S1, S2 Respiratory: Yes: CTA Bilaterally Gastrointestinal: Yes: Normal Bowel Sounds, Soft Genitourinary: Yes: WNL Musculoskeletal: Yes: Muscle Weakness Edema: No Neurological: Yes: Oriented Psychiatric: Yes: Oriented Labs: CBC, BMP 12/22/17 08:33 12/24/17 06:00 INR, PTT INR 1.20 (0.83-1.09) H 12/21/17 18:38 Problem List - Problems (1) Azotemia Code(s): R79.89 - OTHER SPECIFIED ABNORMAL FINDINGS OF BLOOD CHEMISTRY (2) Atrial flutter by electrocardiogram Code(s): I48.92 - UNSPECIFIED ATRIAL FLUTTER Assessment/Plan Current Medications Generic Name Dose Route Start Last Admin Trade Name Freq PRN Reason Stop Dose Admin Acetaminophen 650 mg 12/23/17 14:38 Tylenol - PO Q6H PRN PAIN Ascorbic Acid 500 mg 12/23/17 10:00 12/24/17 09:45 Vitamin C - PO 500 mg DAILY [facility] Administration Atenolol 100 mg 12/22/17 10:00 12/24/17 09:45 Tenormin - PO 100 mg DAILY [facility] Administration Digoxin 0.125 mg 12/25/17 10:00 Lanoxin - PO Q48H [facility] Docusate Sodium 100 mg 12/23/17 22:00 12/24/17 09:47 Colace - PO Not Given BID [facility] Heparin Sodium (Porcine) 5,000 unit 12/22/17 06:00 12/24/17 14:58 Heparin - SQ 5,000 unit TID [facility] Administration Insulin Aspart 1 vial 12/22/17 07:00 12/24/17 12:25 Novolog Vial Sliding Scale - SQ Not Given ACHS [facility] Protocol Isosorbide Mononitrate 60 mg 12/22/17 10:00 12/24/17 09:45 Imdur - PO 60 mg DAILY [facility] Administration Potassium Chloride 40 meq 12/24/17 16:18 Potassium Chloride Oral Liquid PO 12/24/17 16:19 ONCE ONE Senna 2 tab 12/23/17 22:00 12/23/17 22:31 Senna - PO 2 tab HS [facility] Administration Impression 1. Azotemia 2. a-flutter 3. frequent falls 4. CAD 5. HTN 6. proteinurua Plan - hold off lasix today - replace potassium - repeat bmp in am - follow up ct scan results - check urine prt to regulatory specialist ratio - cont to monitor volume status - will follow
[2017-12-24] MEDS ORDERED: POTASSIUM CHLORIDE ORAL LIQUID 20 MEQ/15 ML PO ONE (16:30)
[2017-12-24 20:13] VITALS: BMI 22.7
[2017-12-24] MEDS: SENNOSIDES 8.6MG TABLET (FP) PO SCH (21:30)
[2017-12-25] MEDS: HEPARIN NA (PORCINE) 5,000 UNITS/ML 1ML VIAL SQ SCH ×2 (06:15→14:10)
[2017-12-25] MEDS: INSULIN SLIDING SCALE (NOVOLOG) 1 VIAL SQ SCH ×4 (06:15→21:30)
[2017-12-25 09:07] LABS: ANION GAP 8 MMOL/L (8-16); BLOOD UREA NITROGEN 29 mg/dL (7-18); CALCIUM 8.8 mg/dL (8.5-10.1); CHLORIDE 104 mmol/L (98-107); CO2 27 mmol/L (21-32); GLUCOSE,RANDOM 105 mg/dL (74-106); MAGNESIUM 2.2 mg/dL (1.8-2.4); POTASSIUM 3.8 mmol/L (3.5-5.1); SODIUM 139 mmol/L (136-145)
[2017-12-25 09:09] LABS: PHOSPHOROUS 2.8 mg/dL (2.5-4.9)
[2017-12-25] MEDS: DOCUSATE SODIUM 100 MG CAPSULE (FP) PO SCH ×2 (09:14→21:31)
[2017-12-25] MEDS: ASCORBIC ACID 500 MG TABLET (FP) PO SCH (09:14)
[2017-12-25] MEDS: ATENOLOL 50 MG TABLET (FP) PO SCH (09:27)
[2017-12-25] MEDS: ISOSORBIDE MONONITRATE 60 MG TAB.SR.24H (FP) PO SCH (09:27)
[2017-12-25] MEDS: DIGOXIN 0.125 MG TABLET (FP) PO SCH (09:27)
--- NOTE | 2017-12-25 09:30 | PN ---
Progress Note (short form) - Note Progress Note: Neurology HISTORY OF PRESENT ILLNESS: 87 y/o Female presents with PMHx of CHF, Atrial Flutter, Cardiac Stent (2002), HTN, DM, DJD R Hip, ? Parkinsons disease, Hx of Multiple Falls, Chronic R Hip pain presents with an increase in lower extremity swelling over the past few months. 9 months ago, she started to feel off balance accompanied with R leg pain, weakness and b/l Lower extremity swelling (R>L). 5 months ago, reportedly had a R Hip Arthrogram and cortisone injection that did not relieve the pain. For the past few weeks, She has been experiencing blurry vision in her left eye. Patient recently fell and landed on her knees a few days ago. She has described the hip pain as constant, Dull, heaviness, 9/10 that is worse in the evenings and travels down her leg and occasionally feels like numbness/ tingling. She has tried compression stockings with minimal relief. Patient currently lives at home and has visiting nurses during the day for 4-5 days a week, and her daughter stays with her overnight. She currently is wheel chair bound. Denies fevers, chills, chest pain, SOB, dysuria. CT head completed, no acute changes. Spoke with primary and getting medical optimization, physical therapy. Resident to inquire regarding PD as no medication on board. More awake , alert and interactive today. Slowness in movement but otherwise appears possibly close to baseline. Would not initiate PD medications at this time, can have outpatient follow up when stabilized. Active Medications Acetaminophen (Tylenol -) 650 mg PO Q6H PRN PRN Reason: PAIN Ascorbic Acid (Vitamin C -) 500 mg PO DAILY [facility] Last Admin: 12/23/17 10:50 Dose: 500 mg Atenolol (Tenormin -) 100 mg PO DAILY [facility] Last Admin: 12/23/17 10:50 Dose: 100 mg Digoxin (Lanoxin -) 0.125 mg PO Q48H [facility] Docusate Sodium (Colace -) 100 mg PO BID [facility] Last Admin: 12/23/17 22:31 Dose: 100 mg Heparin Sodium (Porcine) (Heparin -) 5,000 unit SQ TID [facility] Last Admin: 12/24/17 06:17 Dose: 5,000 unit Insulin Aspart (Novolog Vial Sliding Scale -) 1 vial SQ ACHS [facility]; Protocol Last Admin: 12/24/17 06:17 Dose: Not Given Isosorbide Mononitrate (Imdur -) 60 mg PO DAILY [facility] Last Admin: 12/23/17 10:50 Dose: 60 mg Senna (Senna -) 2 tab PO HS [facility] Last Admin: 12/23/17 22:31 Dose: 2 tab PHYSICAL EXAMINATION Vital Signs Period Temp Pulse Resp BP Sys/Rodriguez Pulse Ox Last 24 Hr 97.7 F-99 F 18-74 20-66 125-145/46-78 96 GENERAL: Awake, alert, and fully oriented, in no acute distress. EYES: PERRL, EOMI, sclera anicteric THROAT: oropharynx clear without exudates. Moist mucous membranes. NECK: No JVD, No carotid bruits appreciated LUNGS: Breath sounds equal, clear to auscultation bilaterally. No wheezes. HEART: Regular rate and rhythm, normal S1 and S2 without murmur. ABDOMEN: Soft, nontender, not distended, normoactive bowel sounds, no guarding, Colostomy bag present without any surrounding drainage or erythema. UPPER EXTREMITIES: 2+ pulses, Right hand finger nail discoloration. LOWER EXTREMITIES: 2+ pulses, Lower extremity edema present at base line that has increased as per patient. PSYCHIATRIC: Cooperative. Good eye contact. Appropriate mood and affect. Neuro: awake, alert, cooperative, ?bradykinesia, no evidence of cogwheeling, finger to nose intact, gait deferred SKIN: Warm, dry, no rashes or lesions noted CBCD WBC 9.5 K/mm3 (4.0-10.0) 12/22/17 08:33 RBC 5.11 M/mm3 (3.60-5.2) 12/22/17 08:33 Hgb 13.1 GM/dL (10.7-15.3) 12/22/17 08:33 Hct 39.5 % (32.4-45.2) 12/22/17 08:33 MCV 77.2 fl (80-96) L 12/22/17 08:33 MCHC 33.2 g/dl (32.0-36.0) 12/22/17 08:33 RDW 16.5 % (11.6-15.6) H 12/22/17 08:33 Plt Count 143 K/MM3 (134-434) 12/22/17 08:33 MPV 9.7 fl (7.5-11.1) 12/22/17 08:33 CMP Sodium 139 mmol/L (136-145) 12/25/17 07:40 Potassium 3.8 mmol/L (3.5-5.1) 12/25/17 07:40 Chloride 104 mmol/L (98-107) 12/25/17 07:40 Carbon Dioxide 27 mmol/L (21-32) 12/25/17 07:40 Anion Gap 8 MMOL/L (8-16) 12/25/17 07:40 BUN 29 mg/dL (7-18) H 12/25/17 07:40 Creatinine 1.0 mg/dL (0.55-1.02) 12/25/17 07:40 Creat Clearance w eGFR 52.33 (>60) 12/25/17 07:40 Random Glucose 105 mg/dL (74-106) 12/25/17 07:40 Calcium 8.8 mg/dL (8.5-10.1) 12/25/17 07:40 Total Bilirubin 0.6 mg/dL (0.2-1.0) 12/22/17 08:33 AST 18 U/L (15-37) 12/22/17 08:33 ALT 20 U/L (12-78) 12/22/17 08:33 Alkaline Phosphatase 52 U/L (45-117) 12/22/17 08:33 Total Protein 7.9 g/dl (6.4-8.2) 12/22/17 08:33 Albumin 4.0 g/dl (3.4-5.0) 12/22/17 08:33 CARDIAC ENZYMES Troponin I < 0.02 ng/ml (0.00-0.05) 12/21/17 18:38 CT head reviewed ASSESSMENT/PLAN: 87 y/o Female presents with PMHx of CHF, Atrial Flutter, Cardiac Stent (2002), HTN, DM, DJD R Hip, ? Parkinsons disease, Hx of Multiple Falls, Chronic R Hip pain presents with an increase in lower extremity swelling over the past few months. 9 months ago, she started to feel off balance accompanied with R leg pain, weakness and b/l Lower extremity swelling (R>L). 5 months ago, reportedly had a R Hip Arthrogram and cortisone injection that did not relieve the pain. For the past few weeks, She has been experiencing blurry vision in her left eye. Patient recently fell and landed on her knees a few days ago. CT head completed, no acute changes. Spoke with primary and getting medical optimization , physical therapy. May benefit from short term rehab if amenable and qualifies. Cardiology follow up for LE, edema, CHF. Monitor BP, maintain normotensive range. Resident to inquire regarding parkinson's dx, not on medication. Monitor glucose, maintain normal range, on insulin. Not on Parkinson 's medications at this time, unclear if she meets this dx, will not add any at this time. Fall precations, DVT ppx. Mental status appears improved and more interactive.
--- NOTE | 2017-12-25 12:32 | PN ---
Progress Note, Physician History of Present Illness: Pt seen and examined at bedside. She is more awake and alert today. She denies shortness of breath. - Current Medication List Current Medications: Active Medications Acetaminophen (Tylenol -) 650 mg PO Q6H PRN PRN Reason: PAIN Ascorbic Acid (Vitamin C -) 500 mg PO DAILY [facility] Last Admin: 12/25/17 09:14 Dose: Not Given Atenolol (Tenormin -) 100 mg PO DAILY [facility] Last Admin: 12/25/17 09:27 Dose: 100 mg Digoxin (Lanoxin -) 0.125 mg PO Q48H [facility] Last Admin: 12/25/17 09:27 Dose: 0.125 mg Docusate Sodium (Colace -) 100 mg PO BID [facility] Last Admin: 12/25/17 09:14 Dose: Not Given Heparin Sodium (Porcine) (Heparin -) 5,000 unit SQ TID [facility] Last Admin: 12/25/17 06:15 Dose: Not Given Insulin Aspart (Novolog Vial Sliding Scale -) 1 vial SQ ACHS [facility]; Protocol Last Admin: 12/25/17 06:15 Dose: Not Given Isosorbide Mononitrate (Imdur -) 60 mg PO DAILY [facility] Last Admin: 12/25/17 09:27 Dose: 60 mg Senna (Senna -) 2 tab PO HS [facility] Last Admin: 12/24/17 21:30 Dose: 2 tab - Objective Vital Signs: Vital Signs Temperature 97.7 F 12/25/17 09:28 Pulse Rate 71 12/25/17 09:28 Respiratory Rate 20 12/25/17 09:28 Blood Pressure 144/61 12/25/17 09:28 O2 Sat by Pulse Oximetry (%) 96 12/25/17 09:00 Constitutional: Yes: Calm Eyes: Yes: Conjunctiva Clear HENT: Yes: Atraumatic Neck: Yes: Supple Cardiovascular: Yes: S1, S2 Respiratory: Yes: CTA Bilaterally Gastrointestinal: Yes: Soft Genitourinary: Yes: Collado Present Musculoskeletal: Yes: WNL Edema: No Neurological: Yes: Oriented Labs: CBC, BMP 12/22/17 08:33 12/25/17 07:40 INR, PTT INR 1.20 (0.83-1.09) H 12/21/17 18:38 Problem List - Problems (1) Azotemia Code(s): R79.89 - OTHER SPECIFIED ABNORMAL FINDINGS OF BLOOD CHEMISTRY (2) Atrial flutter by electrocardiogram Code(s): I48.92 - UNSPECIFIED ATRIAL FLUTTER Assessment/Plan Current Medications Generic Name Dose Route Start Last Admin Trade Name Freq PRN Reason Stop Dose Admin Acetaminophen 650 mg 12/23/17 14:38 Tylenol - PO Q6H PRN PAIN Ascorbic Acid 500 mg 12/23/17 10:00 12/25/17 09:14 Vitamin C - PO Not Given DAILY [facility] Atenolol 100 mg 12/22/17 10:00 12/25/17 09:27 Tenormin - PO 100 mg DAILY [facility] Administration Digoxin 0.125 mg 12/25/17 10:00 12/25/17 09:27 Lanoxin - PO 0.125 mg Q48H [facility] Administration Docusate Sodium 100 mg 12/23/17 22:00 12/25/17 09:14 Colace - PO Not Given BID [facility] Heparin Sodium (Porcine) 5,000 unit 12/22/17 06:00 12/25/17 06:15 Heparin - SQ Not Given TID [facility] Insulin Aspart 1 vial 12/22/17 07:00 12/25/17 06:15 Novolog Vial Sliding Scale - SQ Not Given ACHS [facility] Protocol Isosorbide Mononitrate 60 mg 12/22/17 10:00 12/25/17 09:27 Imdur - PO 60 mg DAILY [facility] Administration Senna 2 tab 12/23/17 22:00 12/24/17 21:30 Senna - PO 2 tab HS [facility] Administration Impression 1. Azotemia 2. a-flutter 3. frequent falls 4. CAD 5. HTN 6. proteinurua 7. hydronephrosis 8. urinary retention Plan - renal function is improved - stable off of diuretics for now, monitor urine output - encourage PO intake - monitor renal function - monitor urine output - ct scan reviewed - will follow
--- NOTE | 2017-12-25 14:34 | PN ---
Teaching Attending Note Name of Resident: Amari Kohli ATTENDING PHYSICIAN STATEMENT I saw and evaluated the patient. I reviewed the resident's note and discussed the case with the resident. I agree with the resident's findings and plan as documented. SUBJECTIVE:asymptomatic. denies Cp, SOB, fever, chills, N/V/C/D OBJECTIVE: Last Vital Signs Temp Pulse Resp BP Pulse Ox 97.7 F 71 20 144/61 96 12/25/17 09:28 12/25/17 09:28 12/25/17 09:28 12/25/17 09:12/25/17 09:00 General NAD, A&O x3 CV S1 S2 RRR no murmur/rub/gallop Lungs CTA B/L no wheezing/rales/rhonchi Extremities no point tenderness sensation grossly intact. strength 0/5 RLE 1/5 LLE no edema ASSESSMENT AND PLAN: 87 yo F with PMhx of CHF, Atrial Flutter, Cardiac Stent (2002), HTN, DM, DJD R Hip, Parkinsons disease, Hx of Multiple Falls, Chronic R Hip pain, right hip arthrogram/Cortisone injection in 07/2017, comes with multiple unwitnessed falls and right hip pain radiating down leg and bilateral lower extremity edema. 1. Multiple falls- likely due to increasing weakness and chronic R hip pain. only able to take several steps with PT due to pain. evaluated by neuro and no other 2. Acute on chronic right hip pain- hx of inter-articular injection in the past. NPO for THR today. PT post-op. pain control. ERIK on discharge 3. LE edema, suspect acute CHF (systolic vs diastolic) +/- amlodipine- now resolved. echo not showing any heart failure. norvasc was held. edema appears resolved. would cont to hold. doppler neg for dvt 4. ZEKE - showing B/L hydro on u/s. CT showing bladder distention but no obvious signs of obstruction. possible neurogenic bladder. hold lasix and nephrotoxic agetns. fluids stopped 5. Lethargy- no recent changes. is slightly more alert than yesterday. monitor mental sttus 6. Atrial flutter 7. CAD s/p PCI 8. HTN- controlled 9. Parkinson's disease- not started on medications. would cont to hold. neuro on board 10. Osteoarthritis 11. DM- hold oral agents. iss and BGM monitoring 12. DVT ppx- hep sq 13. will need ERIK on discharge
[2017-12-25] MEDS: DEXTROSE 5%-WATER - 1,000 ML IV SCH (15:19)
--- NOTE | 2017-12-25 17:14 | PN ---
Physical Exam: SUBJECTIVE: Patient seen and examined. No acute events overnight. Pt. did not require pain medication. Pt is NPO and has steve in place for procedure today, however the surgery is postponed until (12/26/17). Pt. did not have a BM last night. Pt. complains of some shortness of breath. OBJECTIVE: Vital Signs Period Temp Pulse Resp BP Sys/Rodriguez Pulse Ox Last 24 Hr 97.7 F-99 F 66-74 18-66 125-155/46-80 96-96 GENERAL: sleepy, lethargic, A&O x 2, in no acute distress. LUNGS: Breath sounds equal, clear to auscultation bilaterally, no wheezes, no crackles-limited exam d/t lack of mobility by pt. HEART: irregular rhythm and rate that increases with inspiration EXTREMITIES: 1+ dorsal pulses b/l, mild edema in LE, R>L, prominent superficial veins, warm, unable to lift legs off bed, able to wiggle toes and has gross sensation intact. NEUROLOGICAL: Normal speech, gait not observed. PSYCH: Normal mood, normal affect. SKIN: Warm, dry Laboratory Results - last 24 hr 12/24/17 12/25/17 12/25/17 21:19 06:01 07:40 Sodium 139 Potassium 3.8 Chloride 104 Carbon Dioxide 27 Anion Gap 8 BUN 29 H Creatinine 1.0 Creat Clearance w eGFR 52.33 POC Glucometer 117 102 Random Glucose 105 Calcium 8.8 Phosphorus 2.8 Magnesium 2.2 Active Medications Current Medications Acetaminophen (Tylenol -) 650 mg PO Q6H PRN PRN Reason: PAIN Ascorbic Acid (Vitamin C -) 500 mg PO DAILY [facility] Last Admin: 12/25/17 09:14 Dose: Not Given Atenolol (Tenormin -) 100 mg PO DAILY [facility] Last Admin: 12/25/17 09:27 Dose: 100 mg Digoxin (Lanoxin -) 0.125 mg PO Q48H [facility] Last Admin: 12/25/17 09:27 Dose: 0.125 mg Docusate Sodium (Colace -) 100 mg PO BID [facility] Last Admin: 12/25/17 09:14 Dose: Not Given Dextrose (D5w -) 1,000 mls @ 75 mls/hr IV ASDIR [facility] Last Admin: 12/25/17 15:19 Dose: 75 mls/hr Insulin Aspart (Novolog Vial Sliding Scale -) 1 vial SQ ACHS [facility]; Protocol Last Admin: 12/25/17 12:49 Dose: Not Given Isosorbide Mononitrate (Imdur -) 60 mg PO DAILY [facility] Last Admin: 12/25/17 09:27 Dose: 60 mg Senna (Senna -) 2 tab PO HS [facility] Last Admin: 12/24/17 21:30 Dose: 2 tab - EKG: UNDETERMINED RHYTHM WITH PREMATURE VENTRICULAR OR ABERRANTLY CONDUCTED COMPLEXES, LEFT AXIS DEVIATION, MINIMAL VOLTAGE CRITERIA FOR LVH, MAY BE NORMAL VARIANT SEPTAL INFARCT , AGE UNDETERMINED - ECHO: LV Size, function and thickness are normal. RV is normal in Size and function. Moderate , Mild MR, Trace TR, Mild mitral annular calcifications - US DUPLEX: No DVT is identified involving the right leg. - CT Head without contrast: No CT evidence of acute intracranial pathology - CXR: There are no prior studies for comparison. There are degenerative changes , scoliosis and possible bone island in the proximal left humerus. A gross fracture is not seen. There are lower left chest wall clips. There is a large heart, sclerotic unfolded aorta and coarse lung changes compatible with some congestion. The angles are sharp. The soft tissues are intact. Correlation recommended. For more complete evaluation, further imaging with CT or comparison to prior studies may be of help. - XRay Hip and Pelvis: Arthritic changes. Left ostomy site. Right abdominal clip. Acute fracture or subluxation is not seen. If symptoms persist or there is decreased range of motion then further imaging with CT is suggested to exclude subtle bone pathology. - XRay Knee: Loss of bone density. Arthritic changes. Vascular calcifications. - Kidney, Renal US: Mild bilateral hydronephrosis is noted. Abdomen/pelvis CT evaluation may be considered. - CT Abdomen/Pelvis without contrast: urinary retention of 1300ml, mild b/l hydronephrosis, 1mm right lower pole renal calculus - CT Lower extremities: severe degenerative joint changes ASSESSMENT/PLAN: 87 y/o Female presents with PMHx of CHF, Atrial Flutter, Cardiac Stent (2002), HTN, DM, DJD R Hip, Parkinsons disease, Hx of Multiple Falls, Chronic R Hip pain presents with an increase in lower extremity swelling. 1. Lower Extremity swelling (R>L) - Chronic swelling at baseline that has increased over the past few months in the setting of multiple recent falls and being wheel chair bound - Has tried increasing home dose Lasix to 20mg and using compression stalking without relief - Consider this is sequlae of Norvasc use, will stop Norvasc for now - Hx of CHF, Parkinsons disease, Multiple falls - Pain control with Acetaminophen 650 mg PO Q6H PRN - Hold Home dose Lyrica as patient continues to be sleepy during examination - Physical Therapy requested - S/P Lasix x1 dose (12/22), Will hold additional Lasix doses as Cr Rising - Encourage oral fluid intake - Neurology (Dr. Padilla) Consulted, Appreciate Rec's, Medical optimization, physical therapy, inquire regarding parkinson's dx - Cardiology (Dr. Cowan) consulted, Appreciate Rec's, would not diurese on the basis of her legs, dose Lasix prn, cont current atenolol and digoxin - Ortho (Dr. rPide) consulted, Appreciate rec's, Has tried Interarticular injection in July however minimal relief, Pt defered surgical treatment yesterday however she agrees this morning (hip replacement), will contact Ortho to f/u- Pt. scheduled to have hip replacement in the AM 12/26/17 - RLE Duplex, Knee and Hip XRay, Head CT, CXR, ECHO noted above - Lipid panel noted - NPO after midnight, started D5 at 75ml/hr 2. ZEKE - Elevated Cr, UA: 2+ Protien - Ordered Urine Protein:Cr Ratio - Renal Ultrasound: Mild bilateral hydronephrosis - Nephrology (Dr. Thorpe) consulted, appreciate rec's, hold off lasix today, check urine prt to women's swim coach ratio, monitor volume status - Cr :1.0; BUN: 29 - Good urine output noted over 700ml 12/25/17 3. DM - Hold home medications - BGM, ISS ACHS 4. Parkinsons disease - Also has a Hx of Multiple Falls - This is apparently a recent diagnosis and she has not been started on medications yet - Neurology (Dr. Padilla) Consulted 5. Atrial Flutter - Cardiology (Dr. Cowan) consulted - Continue home meds 6. HTN - Will Decrease digoxin to 0.125mg Q48h (renally dosed) - Will Continue home meds, Hold Amlodipine 7. PPx - DVT: Heparin held for procedure in the AM Visit type - Emergency Visit Emergency Visit: Yes ED Registration Date: 12/22/17 Care time: The patient presented to the Emergency Department on the above date and was hospitalized for further evaluation of their emergent condition. - New Patient This patient is new to me today: Yes Date on this admission: 12/25/17 - Critical Care Critical Care patient: No - Discharge Referral Referred to [facility] Med P.C.: No
[2017-12-25] MEDS: ACETAMINOPHEN 325 MG TABLET (FP) PO PRN (21:31)
[2017-12-25] MEDS: SENNOSIDES 8.6MG TABLET (FP) PO SCH (21:31)
[2017-12-26] MEDS: DEXTROSE 5%-WATER - 1,000 ML IV SCH (04:56)
[2017-12-26] MEDS: INSULIN SLIDING SCALE (NOVOLOG) 1 VIAL SQ SCH ×4 (06:39→21:32)
--- NOTE | 2017-12-26 09:02 | PN ---
Progress Note (short form) - Note Progress Note: Ortho Pt seen and examined c/o right hip pain PE- + ttp ,decr rom ,nvi a/p Pt is to be d/c 'd to SNF today/tomorrow Pt and family is to decide if and when they would like to have surgery Surgery will not take place at this admission to f/u as outpt d/w Dr. Pride
[2017-12-26 09:46] LABS: RATIO URIN PROTEIN/URIN CREAT 0.597 MG/DL
[2017-12-26] MEDS: ATENOLOL 50 MG TABLET (FP) PO SCH (10:07)
[2017-12-26] MEDS: DOCUSATE SODIUM 100 MG CAPSULE (FP) PO SCH ×2 (10:07→21:32)
[2017-12-26] MEDS: ASCORBIC ACID 500 MG TABLET (FP) PO SCH (10:08)
[2017-12-26] MEDS: ISOSORBIDE MONONITRATE 60 MG TAB.SR.24H (FP) PO SCH (10:08)
--- NOTE | 2017-12-26 13:12 | PN ---
Physical Exam: SUBJECTIVE: Patient seen and examined. No acute events. Pt. endorese pain in right knee and b/l hip pain. Pt. denies abdominal pain, chest pain or SOB. OBJECTIVE: Vital Signs Period Temp Pulse Resp BP Sys/Rodriguez Pulse Ox Last 24 Hr 97.8 F-98.3 F 56-69 18-20 152-156/56-80 96-96 GENERAL: The patient is awake, alert, and fully oriented, in no acute distress. LUNGS: Breath sounds equal, clear to auscultation bilaterally, no wheezes, no crackles, no accessory muscle use. HEART: Regular rate and rhythm, S1, S2 without murmur, rub or gallop. ABDOMEN: Soft, nontender, nondistended, normoactive bowel sounds, no guarding, no rebound EXTREMITIES: 2+ pulses, warm, well-perfused, mild edema R>L, no calf tenderness. PSYCH: Normal mood, normal affect. SKIN: Warm, dry Laboratory Results - last 24 hr 12/25/17 12/25/17 12/26/17 17:17 21:28 05:00 POC Glucometer 115 136 U Random Total Protein 80 H Urine Creatinine 134.0 Protein/Creatinin Ratio 0.597 12/26/17 12/26/17 05:52 11:13 POC Glucometer 124 169 U Random Total Protein Urine Creatinine Protein/Creatinin Ratio Active Medications Current Medications Acetaminophen (Tylenol -) 650 mg PO Q6H PRN PRN Reason: PAIN Last Admin: 12/25/17 21:31 Dose: 650 mg Ascorbic Acid (Vitamin C -) [address] [facility] Last Admin: 12/26/17 10:08 Dose: 500 mg Atenolol (Tenormin -) [address] [facility] Last Admin: 12/26/17 10:07 Dose: 100 mg Digoxin (Lanoxin -) 0.[address] [facility] Last Admin: 12/25/17 09:27 Dose: 0.125 mg Docusate Sodium (Colace -) [address] [facility] Last Admin: 12/26/17 10:07 Dose: 100 mg Dextrose (D5w -) 1,000 mls @ 75 mls/hr IV ASDIR [facility] Last Admin: 12/26/17 04:56 Dose: 75 mls/hr Insulin Aspart (Novolog Vial Sliding Scale -) 1 vial SQ [facility]; Protocol Last Admin: 12/26/17 11:00 Dose: Not Given Isosorbide Mononitrate (Imdur -) [address] [facility] Last Admin: 12/26/17 10:08 Dose: 60 mg Senna (Senna -) [address] [facility] Last Admin: 12/25/17 21:31 Dose: 2 tab ASSESSMENT/PLAN: - EKG: UNDETERMINED RHYTHM WITH PREMATURE VENTRICULAR OR ABERRANTLY CONDUCTED COMPLEXES, LEFT AXIS DEVIATION, MINIMAL VOLTAGE CRITERIA FOR LVH, MAY BE NORMAL VARIANT SEPTAL INFARCT , AGE UNDETERMINED - ECHO: LV Size, function and thickness are normal. RV is normal in Size and function. Moderate , Mild MR, Trace TR, Mild mitral annular calcifications - US DUPLEX: No DVT is identified involving the right leg. - CT Head without contrast: No CT evidence of acute intracranial pathology - CXR: There are no prior studies for comparison. There are degenerative changes , scoliosis and possible bone island in the proximal left humerus. A gross fracture is not seen. There are lower left chest wall clips. There is a large heart, sclerotic unfolded aorta and coarse lung changes compatible with some congestion. The angles are sharp. The soft tissues are intact. Correlation recommended. For more complete evaluation, further imaging with CT or comparison to prior studies may be of help. - XRay Hip and Pelvis: Arthritic changes. Left ostomy site. Right abdominal clip. Acute fracture or subluxation is not seen. If symptoms persist or there is decreased range of motion then further imaging with CT is suggested to exclude subtle bone pathology. - XRay Knee: Loss of bone density. Arthritic changes. Vascular calcifications. - Kidney, Renal US: Mild bilateral hydronephrosis is noted. Abdomen/pelvis CT evaluation may be considered. - CT Abdomen/Pelvis without contrast: urinary retention of 1300ml, mild b/l hydronephrosis, 1mm right lower pole renal calculus - CT Lower extremities: severe degenerative joint changes ASSESSMENT/PLAN: 87 y/o Female presents with PMHx of CHF, Atrial Flutter, Cardiac Stent (2002), HTN, DM, DJD R Hip, Parkinsons disease, Hx of Multiple Falls, Chronic R Hip pain presents with an increase in lower extremity swelling. 1. Lower Extremity swelling (R>L) - Chronic swelling at baseline that has increased over the past few months in the setting of multiple recent falls and being wheel chair bound - Has tried increasing home dose Lasix to 20mg and using compression stalking without relief - Consider this is sequlae of Norvasc use, will stop Norvasc for now - Hx of CHF, Parkinsons disease, Multiple falls - Pain control with Acetaminophen 650 mg PO Q6H PRN - Hold Home dose Lyrica as patient continues to be sleepy during examination - Physical Therapy requested - S/P Lasix x1 dose (12/22), Will hold additional Lasix doses as Cr Rising - Encourage oral fluid intake - Neurology (Dr. Padilla) Consulted, Appreciate Rec's, Medical optimization, physical therapy, inquire regarding parkinson's dx - Cardiology (Dr. Cowan) consulted, Appreciate Rec's, would not diurese on the basis of her legs, dose Lasix prn, cont current atenolol and digoxin - Ortho (Dr. Pride) consulted, Appreciate rec's, Has tried Interarticular injection in July however minimal relief, Pt defered surgical treatment yesterday however she agrees this morning (hip replacement), will contact Ortho to f/u- Pt. scheduled to have hip replacement in the AM 12/26/17. - RLE Duplex, Knee and Hip XRay, Head CT, CXR, ECHO noted above - Lipid panel noted - NPO after midnight, started D5 at 75ml/hr - IVF D/C-ed (12/26/17) - Pt. is unable to receive procedure because insurance requires Physical Therapy first. Pt. is awaiting placement into SNF. 2. ZEKE - Elevated Cr, UA: 2+ Protien - Ordered Urine Protein:Cr Ratio - Renal Ultrasound: Mild bilateral hydronephrosis - Nephrology (Dr. Thorpe) consulted, appreciate rec's, hold off lasix today, check urine prt to factory focus technician ratio, monitor volume status - Cr :1.0; BUN: 29 (12/25/17) - Good urine output noted over 700ml (12/25/17) 3. DM - Hold home medications - BGM, ISS ACHS 4. Parkinsons disease - Also has a Hx of Multiple Falls - This is apparently a recent diagnosis and she has not been started on medications yet - Neurology (Dr. Padilla) Consulted 5. Atrial Flutter - Cardiology (Dr. Cowan) consulted - Continue home meds 6. HTN - Will Decrease digoxin to 0.125mg Q48h (renally dosed) - Will Continue home meds, Hold Amlodipine 7. PPx - DVT: Heparin held for procedure in the AM Visit type - Emergency Visit Emergency Visit: Yes ED Registration Date: 12/22/17 Care time: The patient presented to the Emergency Department on the above date and was hospitalized for further evaluation of their emergent condition. - New Patient This patient is new to me today: No - Critical Care Critical Care patient: No - Discharge Referral Referred to [facility] Med P.C.: No
--- NOTE | 2017-12-26 13:25 | PN ---
Progress Note, Physician History of Present Illness: Pt seen and examined at bedside. She is out of bed to chair. She complains of weakness. - Current Medication List Current Medications: Active Medications Acetaminophen (Tylenol -) 650 mg PO Q6H PRN PRN Reason: PAIN Last Admin: 12/25/17 21:31 Dose: 650 mg Ascorbic Acid (Vitamin C -) 500 mg PO DAILY [facility] Last Admin: 12/26/17 10:08 Dose: 500 mg Atenolol (Tenormin -) 100 mg PO DAILY [facility] Last Admin: 12/26/17 10:07 Dose: 100 mg Digoxin (Lanoxin -) 0.125 mg PO Q48H [facility] Last Admin: 12/25/17 09:27 Dose: 0.125 mg Docusate Sodium (Colace -) 100 mg PO BID [facility] Last Admin: 12/26/17 10:07 Dose: 100 mg Dextrose (D5w -) 1,000 mls @ 75 mls/hr IV ASDIR [facility] Last Admin: 12/26/17 04:56 Dose: 75 mls/hr Insulin Aspart (Novolog Vial Sliding Scale -) 1 vial SQ ACHS [facility]; Protocol Last Admin: 12/26/17 11:00 Dose: Not Given Isosorbide Mononitrate (Imdur -) 60 mg PO DAILY [facility] Last Admin: 12/26/17 10:08 Dose: 60 mg Senna (Senna -) 2 tab PO HS [facility] Last Admin: 12/25/17 21:31 Dose: 2 tab - Objective Vital Signs: Vital Signs Temperature 98.3 F 12/26/17 09:07 Pulse Rate 56 L 12/26/17 09:07 Respiratory Rate 18 12/26/17 09:07 Blood Pressure 156/78 12/26/17 09:07 O2 Sat by Pulse Oximetry (%) 96 12/26/17 09:00 Constitutional: Yes: Calm Eyes: Yes: Conjunctiva Clear HENT: Yes: Atraumatic Neck: Yes: Supple Cardiovascular: Yes: S1, S2 Respiratory: Yes: CTA Bilaterally Gastrointestinal: Yes: Soft Genitourinary: Yes: Steve Present Musculoskeletal: Yes: Muscle Weakness Edema: No Neurological: Yes: Oriented Labs: CBC, BMP 12/22/17 08:33 12/25/17 07:40 INR, PTT INR 1.20 (0.83-1.09) H 12/21/17 18:38 Problem List - Problems (1) Azotemia Code(s): R79.89 - OTHER SPECIFIED ABNORMAL FINDINGS OF BLOOD CHEMISTRY (2) Atrial flutter by electrocardiogram Code(s): I48.92 - UNSPECIFIED ATRIAL FLUTTER Assessment/Plan Current Medications Generic Name Dose Route Start Last Admin Trade Name Freq PRN Reason Stop Dose Admin Acetaminophen 650 mg 12/23/17 14:38 12/25/17 21:31 Tylenol - PO 650 mg Q6H PRN Administration PAIN Ascorbic Acid 500 mg 12/23/17 10:00 12/26/17 10:08 Vitamin C - PO 500 mg DAILY [facility] Administration Atenolol 100 mg 12/22/17 10:00 12/26/17 10:07 Tenormin - PO 100 mg DAILY [facility] Administration Digoxin 0.125 mg 12/25/17 10:00 12/25/17 09:27 Lanoxin - PO 0.125 mg Q48H [facility] Administration Docusate Sodium 100 mg 12/23/17 22:00 12/26/17 10:07 Colace - PO 100 mg BID [facility] Administration Dextrose 1,000 mls @ 75 mls/hr 12/25/17 15:15 12/26/17 04:56 D5w - IV 75 mls/hr ASDIR [facility] Administration Insulin Aspart 1 vial 12/22/17 07:00 12/26/17 11:00 Novolog Vial Sliding Scale - SQ Not Given ACHS [facility] Protocol Isosorbide Mononitrate 60 mg 12/22/17 10:00 12/26/17 10:08 Imdur - PO 60 mg DAILY [facility] Administration Senna 2 tab 12/23/17 22:00 12/25/17 21:31 Senna - PO 2 tab HS [facility] Administration Impression 1. Azotemia 2. a-flutter 3. frequent falls 4. CAD 5. HTN 6. proteinurua 7. hydronephrosis 8. urinary retention Plan - renal function is stabilizing - maintain steve - urology eval - hold off diuretics - monitor urine output - encourage PO intake - will follow
--- NOTE | 2017-12-26 14:15 | PN ---
Teaching Attending Note Name of Resident: Amari Kohli ATTENDING PHYSICIAN STATEMENT I saw and evaluated the patient. I reviewed the resident's note and discussed the case with the resident. I agree with the resident's findings and plan as documented. SUBJECTIVE:asymptomatic. denies Cp, SOB, fever, chills, N/v/C/D OBJECTIVE: Last Vital Signs Temp Pulse Resp BP Pulse Ox 98.3 F 56 L 18 156/78 96 12/26/17 09:07 12/26/17 09:07 12/26/17 09:07 12/26/17 09:07 12/26/17 09:00 General NAD, A&O x3 ASSESSMENT AND PLAN: 87 yo F with PMhx of CHF, Atrial Flutter, Cardiac Stent (2002), HTN, DM, DJD R Hip, Parkinsons disease, Hx of Multiple Falls, Chronic R Hip pain, right hip arthrogram/Cortisone injection in 07/2017, comes with multiple unwitnessed falls and right hip pain radiating down leg and bilateral lower extremity edema. 1. Multiple falls- likely due to increasing weakness and chronic R hip pain. only able to take several steps with PT due to pain. no further workup at this time. 2. Acute on chronic right hip pain- hx of inter-articular injection in the past. THR is currently being held as per report, pt needs to perform PT prior to surgery to see if no improvement. plan for ERIK and ortho follow up as outpatient. 3. LE edema, suspect acute CHF (systolic vs diastolic) +/- amlodipine- now resolved. 4. ZEKE - showing B/L hydro on u/s. CT showing bladder distention but no obvious signs of obstruction. possible neurogenic bladder. hold lasix and nephrotoxic agents.d/c IVF 5. Lethargy- appears more alert today. responsive and oriented 6. Atrial flutter 7. CAD s/p PCI 8. HTN- controlled 9. Parkinson's disease- not started on medications. would cont to hold. neuro on board 10. Osteoarthritis 11. DM- hold oral agents. iss and BGM monitoring 12. DVT ppx- hep sq 13. medically optimized at this time. awaiting ERIK placement
[2017-12-26] MEDS: ACETAMINOPHEN 325 MG TABLET (FP) PO PRN ×2 (15:21→22:53)
[2017-12-26] MEDS ORDERED: INSULIN (NOVOLOG) ASPART 100 UNITS/ML 10ML VIAL ONE (21:19)
[2017-12-26] MEDS: SENNOSIDES 8.6MG TABLET (FP) PO SCH (21:32)
[2017-12-27] MEDS: INSULIN SLIDING SCALE (NOVOLOG) 1 VIAL SQ SCH ×3 (06:37→17:18)
[2017-12-27 09:05] LABS: ANION GAP 10 MMOL/L (8-16); BLOOD UREA NITROGEN 22 mg/dL (7-18); CALCIUM 9.2 mg/dL (8.5-10.1); CHLORIDE 105 mmol/L (98-107); CO2 26 mmol/L (21-32); CREATININE 0.8 mg/dL (0.55-1.02); GLUCOSE,RANDOM 108 mg/dL (74-106); SODIUM 141 mmol/L (136-145)
[2017-12-27] MEDS: ISOSORBIDE MONONITRATE 60 MG TAB.SR.24H (FP) PO SCH (10:21)
[2017-12-27] MEDS: DIGOXIN 0.125 MG TABLET (FP) PO SCH (10:21)
[2017-12-27] MEDS: DOCUSATE SODIUM 100 MG CAPSULE (FP) PO SCH (10:21)
[2017-12-27] MEDS: ATENOLOL 50 MG TABLET (FP) PO SCH (10:21)
[2017-12-27] MEDS: ASCORBIC ACID 500 MG TABLET (FP) PO SCH (10:22)
--- NOTE | 2017-12-27 12:28 | PN ---
Teaching Attending Note Name of Resident: Felipe Khan ATTENDING PHYSICIAN STATEMENT I saw and evaluated the patient. I reviewed the resident's note and discussed the case with the resident. I agree with the resident's findings and plan as documented. SUBJECTIVE:asymptomatic. denies Cp, SOB, fever, chills, N/V/C/D OBJECTIVE: Last Vital Signs Temp Pulse Resp BP Pulse Ox 98 F 72 17 148/65 96 12/27/17 10:00 12/27/17 10:21 12/27/17 10:00 12/27/17 10:00 12/27/17 09:00 General NAD, A&O x3 ASSESSMENT AND PLAN: 87 yo F with PMhx of CHF, Atrial Flutter, Cardiac Stent (2002), HTN, DM, DJD R Hip, Parkinsons disease, Hx of Multiple Falls, Chronic R Hip pain, right hip arthrogram/Cortisone injection in 07/2017, comes with multiple unwitnessed falls and right hip pain radiating down leg and bilateral lower extremity edema. 1. Multiple falls- likely due to increasing weakness and chronic R hip pain. only able to take several steps with PT due to pain. no further workup at this time. 2. Acute on chronic right hip pain- hx of inter-articular injection in the past. THR is currently being held as per report, pt needs to perform PT prior to surgery to see if no improvement. plan for ERIK and ortho follow up as outpatient. 3. LE edema, suspect acute CHF (systolic vs diastolic) +/- amlodipine- now resolved. 4. ZEKE - showing B/L hydro on u/s. CT showing bladder distention but no obvious signs of obstruction. possible neurogenic bladder. hold lasix and nephrotoxic agents can restart lasix on discharge 5. Lethargy- appears more alert today. responsive and oriented 6. Atrial flutter 7. CAD s/p PCI 8. HTN- controlled 9. Parkinson's disease- not started on medications. would cont to hold. neuro on board 10. Osteoarthritis 11. DM- hold oral agents. iss and BGM monitoring 12. DVT ppx- hep sq 13. medically optimized at this time. awaiting ERIK placement
--- NOTE | 2017-12-27 13:27 | PN ---
Progress Note, Physician History of Present Illness: Pt seen and examined at bedside. She is awake and appears comfortable. She denies shortness of breath. She is making urine. PO intake slowly improving. - Current Medication List Current Medications: Active Medications Acetaminophen (Tylenol -) 650 mg PO Q6H PRN PRN Reason: PAIN Last Admin: 12/26/17 22:53 Dose: 650 mg Ascorbic Acid (Vitamin C -) 500 mg PO DAILY [facility] Last Admin: 12/27/17 10:22 Dose: 500 mg Atenolol (Tenormin -) 100 mg PO DAILY [facility] Last Admin: 12/27/17 10:21 Dose: 100 mg Digoxin (Lanoxin -) 0.125 mg PO Q48H [facility] Last Admin: 12/27/17 10:21 Dose: 0.125 mg Docusate Sodium (Colace -) 100 mg PO BID [facility] Last Admin: 12/27/17 10:21 Dose: 100 mg Insulin Aspart (Novolog Vial Sliding Scale -) 1 vial SQ ACHS [facility]; Protocol Last Admin: 12/27/17 11:50 Dose: Not Given Isosorbide Mononitrate (Imdur -) 60 mg PO DAILY [facility] Last Admin: 12/27/17 10:21 Dose: 60 mg Senna (Senna -) 2 tab PO HS [facility] Last Admin: 12/26/17 21:32 Dose: 2 tab - Objective Vital Signs: Vital Signs Temperature 98 F 12/27/17 10:00 Pulse Rate 72 12/27/17 10:21 Respiratory Rate 17 12/27/17 10:00 Blood Pressure 148/65 12/27/17 10:00 O2 Sat by Pulse Oximetry (%) 96 12/27/17 09:00 Constitutional: Yes: Calm Eyes: Yes: Conjunctiva Clear Cardiovascular: Yes: S1, S2 Respiratory: Yes: CTA Bilaterally, On Nasal O2 Gastrointestinal: Yes: Soft Genitourinary: Yes: Steve Present Musculoskeletal: Yes: Muscle Weakness Edema: No Integumentary: Yes: Venous Stasis Changes Neurological: Yes: Oriented Psychiatric: Yes: Oriented Labs: CBC, BMP 12/22/17 08:33 12/27/17 08:00 INR, PTT INR 1.20 (0.83-1.09) H 12/21/17 18:38 Problem List - Problems (1) Azotemia Code(s): R79.89 - OTHER SPECIFIED ABNORMAL FINDINGS OF BLOOD CHEMISTRY (2) Atrial flutter by electrocardiogram Code(s): I48.92 - UNSPECIFIED ATRIAL FLUTTER Assessment/Plan Current Medications Generic Name Dose Route Start Last Admin Trade Name Freq PRN Reason Stop Dose Admin Acetaminophen 650 mg 12/23/17 14:38 12/26/17 22:53 Tylenol - PO 650 mg Q6H PRN Administration PAIN Ascorbic Acid 500 mg 12/23/17 10:00 12/27/17 10:22 Vitamin C - PO 500 mg DAILY [facility] Administration Atenolol 100 mg 12/22/17 10:00 12/27/17 10:21 Tenormin - PO 100 mg DAILY [facility] Administration Digoxin 0.125 mg 12/25/17 10:00 12/27/17 10:21 Lanoxin - PO 0.125 mg Q48H [facility] Administration Docusate Sodium 100 mg 12/23/17 22:00 12/27/17 10:21 Colace - PO 100 mg BID [facility] Administration Insulin Aspart 1 vial 12/22/17 07:00 12/27/17 11:50 Novolog Vial Sliding Scale - SQ Not Given ACHS [facility] Protocol Isosorbide Mononitrate 60 mg 12/22/17 10:00 12/27/17 10:21 Imdur - PO 60 mg DAILY [facility] Administration Senna 2 tab 12/23/17 22:00 12/26/17 21:32 Senna - PO 2 tab HS [facility] Administration Impression 1. Azotemia 2. a-flutter 3. frequent falls 4. CAD 5. HTN 6. proteinurua 7. hydronephrosis 8. urinary retention Plan - renal function is stable - monitor urine output - steve for obstruction - lasix on hold, will need to evaluate volume status to see if it should be restarted - urology eval - encourage PO intake - will follow PRN
--- NOTE | 2017-12-27 13:30 | DS ---
Physical Exam: SUBJECTIVE: Patient seen and examined this morning at bedside. No new complaints. No acute overnight events. Denies fevers, chills, chest pain, SOB, nausea, vomiting, diarrhea, constipation. OBJECTIVE: Vital Signs Period Temp Pulse Resp BP Sys/Rodriguez Pulse Ox Last 24 Hr 97.6 F-98.5 F 59-72 17-20 135-148/64-71 96-96 PHYSICAL EXAM GENERAL: Awake, alert, and fully oriented, in no acute distress. EYES: PERRL, EOMI THROAT: oropharynx clear without exudates. Dry mucous membranes. NECK: No JVD LUNGS: Breath sounds equal, clear to auscultation bilaterally. No wheezes. HEART: Regular rate and rhythm, normal S1 and S2 without murmur. ABDOMEN: Soft, nontender, not distended, normoactive bowel sounds, Colostomy bag present without any surrounding drainage or erythema. LOWER EXTREMITIES: 2+ pulses, L4-S1 gross sensation intact bilaterally, Muscle strength 2/5 b/l, Appear enlarged however this is her base line, R>L. LABS Laboratory Results - last 24 hr 12/26/17 12/26/17 12/27/17 17:27 21:31 06:36 Sodium Potassium Chloride Carbon Dioxide Anion Gap BUN Creatinine Creat Clearance w eGFR POC Glucometer 137 99 118 Random Glucose Calcium 12/27/17 12/27/17 08:00 11:47 Sodium 141 Potassium 4.0 Chloride 105 Carbon Dioxide 26 Anion Gap 10 BUN 22 H Creatinine 0.8 Creat Clearance w eGFR > 60 POC Glucometer 118 Random Glucose 108 H Calcium 9.2 Microbiology 12/21/17 20:21 Urine - Urine Clean Catch Urine Culture - Final IMAGING: - EKG: UNDETERMINED RHYTHM WITH PREMATURE VENTRICULAR OR ABERRANTLY CONDUCTED COMPLEXES, LEFT AXIS DEVIATION, MINIMAL VOLTAGE CRITERIA FOR LVH, MAY BE NORMAL VARIANT SEPTAL INFARCT , AGE UNDETERMINED - ECHO: LV Size, function and thickness are normal. RV is normal in Size and function. Moderate , Mild MR, Trace TR, Mild mitral annular calcifications - US DUPLEX: No DVT is identified involving the right leg. - CT Head without contrast: No CT evidence of acute intracranial pathology - CXR: There are no prior studies for comparison. There are degenerative changes , scoliosis and possible bone island in the proximal left humerus. A gross fracture is not seen. There are lower left chest wall clips. There is a large heart, sclerotic unfolded aorta and coarse lung changes compatible with some congestion. The angles are sharp. The soft tissues are intact. Correlation recommended. For more complete evaluation, further imaging with CT or comparison to prior studies may be of help. - XRay Hip and Pelvis: Arthritic changes. Left ostomy site. Right abdominal clip. Acute fracture or subluxation is not seen. If symptoms persist or there is decreased range of motion then further imaging with CT is suggested to exclude subtle bone pathology. - XRay Knee: Loss of bone density. Arthritic changes. Vascular calcifications. - Kidney, Renal US: Mild bilateral hydronephrosis is noted. Abdomen/pelvis CT evaluation may be considered. - CT Abdomen/Pelvis without contrast: Urinary retention is seen with a volume of approximately 1300 mL. There is mild bilateral hydronephrosis probably secondary to the previously described bladder distention. 1 mm nonobstructing right renal calculus. Status post cholecystectomy. The common bile duct is mildly dilated which could be on a postsurgical basis versus representing mild pathologic dilatation. Clinical/laboratory correlation is suggested. Status post left lower quadrant colostomy. Cardiomegaly. Mild bilateral flank subcutaneous edema. Trace bilateral pleural effusions are noted versus representing minimal to mild pleural thickening. - CT Lower extremity (BRIAN protocol for total right hip replacement): Thin section transaxial images were obtained through the level of the pelvis, hips and knee joints as per the BRIAN protocol. Reformatted images were also performed. Severe right hip degenerative joint changes are noted. HOSPITAL COURSE: Date of Admission:12/22/17 Date of Discharge: 12/27/17 Patient was admitted for Lower extremity swelling in the setting of a recent fall and Right hip pain. Neurology, Nephrology, Cardiology, Orthopedic surgery were all consulted. Imaging was done as noted above. She was given a one time dose of Lasix during her course. Her Amlodipine was held, and a Duplex of the Lower extremity did not find a DVT. She was given an intra-articular cortisone shot in 07/2017 yet her symptoms have continued to worsen. She will need to perform Physical therapy prior to having a total hip replacement. Tylenol was used for pain control. Her BUN and Cr began to rise; a Kidney/Renal Ultrasound identified a mild blateral hydronephrosis. Her ZEKE eventually resolved. Patient was discharged to [facility] with instructions to follow up with orthopedic surgery as an outpatient. Minutes to complete discharge: 40 Discharge Summary Reason For Visit: ATRIAL FLUTTER BY ELECTROCARDIOGRAPHY Current Active Problems Atrial flutter by electrocardiogram (Acute) Azotemia (Acute) Falls frequently (Acute) Swelling (Acute) Condition: Stable - Instructions Diet, Activity, Other Instructions: You were brought to the hospital because of leg swelling. This was felt to be most likely a medication side effect. That medication (Norvasc) was stopped. You were seen by the stain maker (Dr. Cowan), the neurologist (Dr. Meeks), the machine ii cutter (Dr. Thorpe), and the orthopedic surgeon (Dr. Pride). You need to call these doctors and make appointments to follow up within 1-2 weeks. You also need to call your primary care doctor and make an appointment to follow up within 1 week. You are being sent to a rehab facility. You need to discuss the option of hip surgery with your orthopedic surgeon (Dr. Pride). We discontinued your Norvasc. If you have any new symptoms, eg chest pain, shortness of breath, nausea, vomiting, diarrhea, call your doctor or return to the emergency department. Referrals: Cory Landaverde MD [Staff Physician] - Amari Pride MD [Staff Physician] - ON STAFF,NOT [Primary Care Provider] - Lesli Bolton RES [Resident] - Disposition: [facility] - Home Medications Comprehensive Discharge Medication List: Ambulatory Orders Ascorbic Acid [Vitamin C] 500 mg PO DAILY 12/21/17 Aspirin [ASA -] 81 mg PO DAILY 12/21/17 Atenolol [Tenormin -] 100 mg PO DAILY 12/21/17 Dexlansoprazole [Dexilant] 60 mg PO DAILY 12/21/17 Digoxin [Lanoxin -] 0.125 mg PO DAILY 12/21/17 Fenofibrate Nanocrystallized [Fenofibrate] 54 mg PO DAILY 12/21/17 Ferrous Sulfate 325 mg PO DAILY 12/21/17 Furosemide 20 mg PO DAILY 12/21/17 Glyburide 2.5 mg PO DAILY 12/21/17 Isosorbide Mononitrate [Isosorbide Mononitrate ER] 60 mg PO DAILY 12/21/17 Pravastatin Sodium [Pravachol (Nf)] 40 mg PO HS 12/27/17 Sennosides [Senna -] 2 tab PO HS tablet 12/27/17 This patient is new to me today: No Emergency Visit: Yes ED Registration Date: 12/22/17 Care time: The patient presented to the Emergency Department on the above date and was hospitalized for further evaluation of their emergent condition. Critical Care patient: No - Discharge Referral Referred to [facility] Med P.C[facility] No
[2017-12-27 15:27] VITALS: BP 133/63; PULSE 68; TEMP 97.7
== END 2017-12-27 18:07 | DRG 683 ==
LOC: JER 16:14 → JERBED 21:54 → OBSVTOIN 12-22 01:48 → J6S 12-22 02:49
PROVIDERS: ADMIT Internal Medicine; ATTEND Internal Medicine
DX: N17.9 Acute kidney failure, unspecified (principal); I48.92 Unspecified atrial flutter; N13.30 Unspecified hydronephrosis; M79.89 Other specified soft tissue disorders; I48.91 Unspecified atrial fibrillation; G20 Parkinson's disease; M16.11 Unilateral primary osteoarthritis, right hip; I11.0 Hypertensive heart disease with heart failure; I25.10 Atherosclerotic heart disease of native coronary artery without angina pectoris; R60.0 Localized edema; E11.9 Type 2 diabetes mellitus without complications; R79.89 Other specified abnormal findings of blood chemistry; M17.11 Unilateral primary osteoarthritis, right knee; H53.8 Other visual disturbances; R33.9 Retention of urine, unspecified; R53.1 Weakness; T46.1X5A Adverse effect of calcium-channel blockers, initial encounter; Y92.098 Other place in other non-institutional residence as the place of occurrence of the external cause; Z91.81 History of falling; Z93.3 Colostomy status; Z95.5 Presence of coronary angioplasty implant and graft
CPT/HCPCS: 36415; 70450-TC; 71045-TC-FY; 73523-TC-FY; 73564-TC-RT-FY; 73700-TC-RT; 74176-TC; 76775-TC; 80048; 80053; 80061; 81003; 81015; 82570; 82962; 83721; 83735; 83880; 84100; 84156; 84484; 85025; 85610; 85730; 86850; 86900; 86901; 87086; 93005; 93010; 93306-TC; 93971-TC; 97116-GP; 97162-GP; 99283-25; G0378; J0131; J1644